=== PATIENT | male | born 1975 | race Caucasian/White ===

== ENCOUNTER → 2017-09-10 | Day surgery (SDC) | payer BC ==
[~2017-09-10] VITALS: Ht 177.8 cm; Wt 90.7 kg
[~2017-09-10] MED LIST: ACETAMINOPHEN IV 100 ML IV ONE; ACETAMINOPHEN IV 1000 MG/100ML (10MG/ML) IV ONE; BUPIVACAINE 0.25% INJ 50ML VIAL ONE; CLINDAMYCIN 900MG IV 50 ML IV ONE; DOXAPRAM HCL 20 MG/ML 20ML VIAL INJ IV ONE; IBUP800T24 PO; KETOROLAC TROMETH 30 MG/ML 1ML VIAL ONE; KETOROLAC TROMETH 60MG/2ML VIAL IM ONE; LIDOCAINE HCL 2 %PF INJ 10ML AMP IJ ONE; MEPERIDINE HCL (50 MG/ML) 1 ML VIAL ONE; METOCLOPRAMIDE HCL 5MG/ml INJ 2ml VIAL IV ONE; MIDAZOLAM HCL 1MG/1ML-2 ML VIAL ONE; MORPHINE SULF(PF) 0.5MG/ML 10ML VIAL ONE; MORPHINE SULFATE 4 MG/ML SYR/VIAL IV PRN; ONDANSETRON HCL 4 MG/2 ML VIAL ONE; ROCURONIUM 10MG/ML 10ML VIAL IV ONE; SUCCINYLCHOLINE CHLORIDE 20 MG/ML 10ML VIAL IV ONE; TRANEXAMIC ACID 1,000 mg/10ml INJ VIAL ONE; VANCOMYCIN HCL 1000 MG VL ONE; fentaNYL CITRATE 100 MCG/2 ML VL ONE
[2017-09-10 10:01] VITALS: BP 141/94
== END | disposition home or self-care (01) ==
LOC: SUR 06:19
PROVIDERS: ATTEND Orthopaedic Surgery Adult Reconstructive Orthopaedic Surgery
DX: S82.832A Other fracture of upper and lower end of left fibula, initial encounter for closed fracture (principal); X58.XXXA Exposure to other specified factors, initial encounter; Y93.9 Activity, unspecified; Y92.9 Unspecified place or not applicable; Y99.9 Unspecified external cause status; Z88.0 Allergy status to penicillin; E66.9 Obesity, unspecified
CPT/HCPCS: 27792; 73610; 76001; C1713; J0131; J0330; J1885; J2175; J2250; J2405; J3010; J3490

== ENCOUNTER 2021-11-23 03:08 | Emergency (ER) | payer BC, MEDICAID ==
[~2021-11-23] VITALS: Ht 177.8 cm; Wt 98.0 kg
[~2021-11-23 03:08] MED LIST changes: -ACETAMINOPHEN IV 100 ML IV ONE; -ACETAMINOPHEN IV 1000 MG/100ML (10MG/ML) IV ONE; -BUPIVACAINE 0.25% INJ 50ML VIAL ONE; -CLINDAMYCIN 900MG IV 50 ML IV ONE; -DOXAPRAM HCL 20 MG/ML 20ML VIAL INJ IV ONE; -IBUP800T24 PO; +IBUP800T27 PO; -KETOROLAC TROMETH 30 MG/ML 1ML VIAL ONE; -KETOROLAC TROMETH 60MG/2ML VIAL IM ONE; -LIDOCAINE HCL 2 %PF INJ 10ML AMP IJ ONE; -MEPERIDINE HCL (50 MG/ML) 1 ML VIAL ONE; -METOCLOPRAMIDE HCL 5MG/ml INJ 2ml VIAL IV ONE; -MIDAZOLAM HCL 1MG/1ML-2 ML VIAL ONE; -MORPHINE SULF(PF) 0.5MG/ML 10ML VIAL ONE; -MORPHINE SULFATE 4 MG/ML SYR/VIAL IV PRN; -ONDANSETRON HCL 4 MG/2 ML VIAL ONE; -ROCURONIUM 10MG/ML 10ML VIAL IV ONE; -SUCCINYLCHOLINE CHLORIDE 20 MG/ML 10ML VIAL IV ONE; -TRANEXAMIC ACID 1,000 mg/10ml INJ VIAL ONE; -VANCOMYCIN HCL 1000 MG VL ONE; -fentaNYL CITRATE 100 MCG/2 ML VL ONE
[2021-11-23 04:41] VITALS: BP 161/99
[2021-11-23] MEDS ORDERED: LORA-655 PO (04:49)
== END 2021-11-23 04:57 | disposition home or self-care (01) ==
LOC: ER 03:08
DX: F41.9 Anxiety disorder, unspecified (principal); Z87.442 Personal history of urinary calculi; Z88.0 Allergy status to penicillin

== ENCOUNTER 2022-03-17 00:14 | Emergency (ER) | payer SELFPAY ==
[~2022-03-17] VITALS: Ht 177.8 cm; Wt 91.0 kg
[~2022-03-17 00:14] MED LIST changes: +LORA-655 PO
[2022-03-17 00:37] VITALS: BP 141/78
== END 2022-03-17 07:37 | disposition left against medical advice (07) ==
LOC: ER 00:14
DX: F41.9 Anxiety disorder, unspecified (principal); Z53.21 Procedure and treatment not carried out due to patient leaving prior to being seen by health care provider; Z76.0 Encounter for issue of repeat prescription

== ENCOUNTER 2022-12-06 04:21 | Emergency (ER) | payer SELFPAY ==
[~2022-12-06] VITALS: Ht 177.8 cm; Wt 93.1 kg
[~2022-12-06 04:21] MED LIST changes: +IBUP-1456 PO; -IBUP800T27 PO; +SERT25TA84 PO
[2022-12-06 04:53] VITALS: BP 139/85
== END 2022-12-06 06:54 | disposition left against medical advice (07) ==
LOC: ER 04:21
DX: F41.9 Anxiety disorder, unspecified (principal); Z53.21 Procedure and treatment not carried out due to patient leaving prior to being seen by health care provider

== ENCOUNTER 2025-03-27 04:30 | Emergency (ER) | payer MEDICAID ==
[~2025-03-27] VITALS: Ht 177.8 cm; Wt 93.5 kg
[2025-03-27] MEDS: ACETAMINOPHEN 325 MG TAB PO ONE (06:23)
[2025-03-27] MEDS: TAMSULOSIN HYDROCHLORIDE 0.4 MG CAP PO ONE (06:23)
[2025-03-27] MEDS: KETOROLAC TROMETH 30 MG/ML 1ML VIAL IV ONE (06:24)
[2025-03-27] MEDS: SODIUM CHLORIDE 0.9% 1,000 ML IV ONE (06:24)
--- NOTE | 2025-03-27 06:28 | ED.PDOC ---
General HPI Comments 49 year old male with PMHx kidney stone presents to the ED with a chief compliant of RT flank pain onset today (03/27/25) around 04:00. Patient states he woke up this morning around 04:00 experiencing RT flank pain. Patient has experienced kidney stones several times in the past, has similar pain. Denies any dysuria, hematuria, nausea, vomiting, diarrhea, chest pain, shortness of breath, dizziness, fever, chills. No other symptoms or modifying factors present at this time. Chief Complaint: Flank Pain Time Seen by MD: 06:15 Primary Care Provider: RUPERTO Reviewed notes: Medications, Allergies Allergies: Coded Allergies: Penicillins (Verified Allergy, Severe, 09/09/17) Home Meds Active Scripts Sertraline Hcl (Zoloft) 25 Mg Tab, 1 TAB PO DAILY, #30 TAB 2 Refills Prov:JIMBO REGAN 09/01/22 Lorazepam (Ativan) 0.5 Mg Tab, 4 TAB PO DAILY, #4 TAB Prov:ROXI SOTO DO 11/23/21 Reported Medications Ibuprofen (Ibuprofen) 800 Mg Tab, 800 MG PO PRN, MG 09/09/17 Information Source: Patient Mode of Arrival: Ambulatory Severity: Moderate Timing: Hours Duration: Since onset Prehospital treatment: None Onset: Spontaneous Symptoms: Other History of: Kidney stone Location: (R) Flank Penile discharge: None Modifying factors: None associated signs and symptoms: Flank Pain Past Medical History PAST MEDICAL HISTORY: Anxiety, Kidney Stones Surgical History: Denies all surgeries Family History Family History: No family hx of DM, Unknown Social History Smoker: Non-Smoker Alcohol: Denies ETOH Use Drugs: Denies Drug Use Lives In: Home Constitutional: denies: chills, diaphoresis, fatigue, fever, malaise, sweats, weakness, others EENTM: denies: blurred vision, double vision, ear bleeding, ear discharge, ear drainage, ear pain, ear ringing, eye pain, eye redness, hearing loss, mouth pain, mouth swelling, nasal discharge, nose bleeding, nose congestion, nose pain, photophobia, tearing, throat pain, throat swelling, voice changes, others Respiratory: denies: cough, hemoptysis, orthopnea, SOB at rest, shortness of breath, SOB with excertion, stridor, wheezing, others Cardiovascular: denies: chest pain, dizzy spells, diaphoresis, Dyspnea on exertion, edema, irregular heart beat, left arm pain, lightheadedness, palpitations, PND, syncope, others Gastrointestinal: denies: abdomen distended, abdominal pain, blood streaked bowels, constipated, diarrhea, dysphagia, difficulty swallowing, hematemesis, melena, nausea, poor appetite, poor fluid intake, rectal bleeding, rectal pain, vomiting, others Genitourinary: reports: flank pain; denies: burning, dysuria, frequency, hematuria, incontinence, penile discharge, penile sore, pain, testicle pain, testicle swelling, urgency, others Neurological: denies: dizziness, fainting, headache, left sided numbness, left sided weakness, numbness, paresthesia, pre-existing deficit, right sided numbness, right sided weakness, seizure, speech problems, tingling, tremors, weakness, others Musculoskeletal: denies: back pain, gout, joint pain, joint swelling, muscle pain, muscle stiffness, neck pain, others Integumetry: denies: bruises, change in color, change in hair/nails, dryness, laceration, lesions, lumps, rash, wounds, others Allergic/Immunocompromised: denies: Difficulty Healing, Frequent Infections, Hives, Itching, others Hematologic/Lymphatic: denies: anemia, blood clots, easy bleeding, easy bruising, swollen glands, others Endocrine: denies: excessive hunger, excessive sweating, excessive thirst, excessive urination, flushing, intolerance to cold, intolerance to heat, unexplained weight gain, unexplained weight loss, others Psychiatric: denies: anxiety, bipolar disorder, depression, hopeless, panic disorder, schizophrenia, sleepless, suicidal, others All Other Systems: Reviewed and Negative Physical Exam General Appearance: Normal HEENT: Normal ENT Inspection, Pharynx Normal, TMs Normal Neck: Full Range of Motion, Non-Tender, Normal, Normal Inspection Respiratory: Chest Non-Tender, Lungs Clear, No Accessory Muscle Use, No Respiratory Distress, Normal Breath Sounds Cardiovascular: No Edema, No JVD, No Murmur, No Gallop, Normal Peripheral Pulses, Regular Rate/Rhythm Breast Exam: Deferred Gastrointestinal: No Organomegaly, Non Tender, No Pulsatile Mass, Normal Bowel Sounds, Soft Genitalia: Deferred Pelvic: Deferred Rectal: Deferred Extremities: No calf tenderness, Normal capillary refill, Normal inspection, Normal range of motion, Non-tender, No pedal edema Musculoskeletal : Apperance: Normal Neurologic: Alert, director process engineering II-XII nml as Tested, No Motor Deficits, Normal Affect, Normal Mood, No Sensory Deficits Cerebellar Function: Normal Reflexes: Normal Skin: Dry, Normal Color, Warm Lymphatic: No Adenopathy Was a procedure done? Was a procedure done?: No Differential Diagnosis Kidney stone (Female): N/A Kidney stone (Male): Pyelonephritis, Urolithiasis, Urinary tract infection X-Ray, Labs, Meds, VS Vital Signs Date Time Temp Pulse Resp B/P (MAP) Pulse Ox O2 Delivery O2 Flow Rate FiO2 03/27/25 06:31 Room Air* 0 21 03/27/25 06:29 98.4 70 18 181/100 (127) 99 98.4 03/27/25 04:32 97.8 82 18 144/102 98 97.8 Lab Test 03/27/25 07:25 03/27/25 06:20 Range/Units Urine Color Light-orange Yellow Urine Clarity Turbid H Clear Urine pH 5.5 5.0-9.0 Urine Specific [place] 1.021 1.001-1.035 Urine Protein 1+ H Negative Urine Ketones Negative Negative Urine Blood 3+ H Negative /uL Urine Nitrite Negative Negative Urine Bilirubin Negative Negative Urine Urobilinogen Normal Negative mg/dL Urine Leukocyte Esterase Negative Negative /uL Urine RBC 92 0 - 3 /hpf Urine Microscopic WBC 4 H 0-3 /HPF Urine Squamous Epithelial Cells None seen <5 /hpf Urine Calcium Oxalate Crystals Few None Seen Urine Bacteria Few H None Seen /hpf Urine Mucus Few None Seen Urine Yeast (Budding) Occasional None Seen /hpf Urine Glucose Trace Normal mg/dL White Blood Count 13.1 H 4.4-10.8 10^3/uL Red Blood Count 5.05 4.5-5.90 10^6/uL Hemoglobin 15.5 13.5-17.5 g/dL Hematocrit 46.1 41.0-53.0 % Mean Corpuscular Volume 91.3 80.0-100.0 fL Mean Corpuscular Hemoglobin 30.7 28.0-32.0 pg Mean Corpuscular Hemoglobin Concent 33.6 32.0-36.0 g/dL Red Cell Distribution Width 13.1 11.8-14.3 % Platelet Count 328 140-450 10^3/uL Mean Platelet Volume 7.1 6.9-10.8 fL Neutrophils (%) (Auto) 79.0 37.0-80.0 % Lymphocytes (%) (Auto) 12.5 10.0-50.0 % Monocytes (%) (Auto) 5.9 0.0-12.0 % Eosinophils (%) (Auto) 2.2 0.0-7.0 % Basophils (%) (Auto) 0.4 0.0-2.0 % Neutrophils # (Auto) 10.4 H 1.6-8.6 10 ^3/uL Lymphocytes # (Auto) 1.6 0.4-5.4 10 ^3/uL Monocytes # (Auto) 0.8 0-1.3 10 ^3/uL Eosinophils # (Auto) 0.3 0-0.8 10 ^3/uL Basophils # (Auto) 0.1 0-0.2 10 ^3/uL Nucleated Red Blood Cells 0.1 % Sodium Level 139 136-145 mmol/L Potassium Level 3.4 L 3.5-5.1 mmol/L Chloride Level 106 98-107 mmol/L Carbon Dioxide Level 22 20-31 mmol/L Anion Gap 11 5-15 Blood Urea Nitrogen 11 9-23 mg/dL Creatinine 0.99 0.700-1.30 mg/dL Glomerular Filtration Rate Calc 92 >90 mL/min BUN/Creatinine Ratio 11.1 10.0-20.0 Serum Glucose 155 H 74-106 mg/dL Calcium Level 9.3 8.7-10.4 mg/dL Current Medications Medications (Trade) Dose Ordered Sig/Brett Route Start Time Stop Time Status Last Admin Sodium Chloride 1,000 ml @ 1,000 mls/hr Q1H ONCE IV 03/27/25 06:30 03/27/25 07:29 DC 03/27/25 06:24 Ketorolac Tromethamine (Toradol Injection) 15 mg ONCE ONCE IV 03/27/25 06:30 03/27/25 06:31 DC 03/27/25 06:24 Acetaminophen (Tylenol Tablet) 650 mg ONCE ONCE PO 03/27/25 06:30 03/27/25 06:31 DC 03/27/25 06:23 Tamsulosin HCl (Flomax) 0.4 mg ONCE ONCE PO 10/21/25 06:30 03/27/25 06:31 DC 03/27/25 06:23 [place] [id number] Ph: [phone] DIAGNOSTIC IMAGING Diagnostic Imaging Report : [id number] Signed PATIENT: JASWINDER GARCIA ACCT: [id number] UNIT: [id number] : 1975 LOC: ER ROOM / BED: / AGE / SEX: 49 / M ADM STATUS: REG ER SERVICE [id number] ORDERING PHYSICIAN: MAE YOUNG MD PROCEDURE(s): ABPL - CT AB PEL WO CON-NO ORAL OR IV REASON: Right Flank pain ORDER NUMBER(s): [id number], ACCESSION NUMBER(s): [id number] Exam: CT CT AB PEL WO CON-NO ORAL OR IV History: Right Flank pain Comparison Study: None Technique: Multidetector spiral CT of the abdomen was performed from lung bases to pubic symphysis. Imaging was performed without IV contrast. Axial, coronal and sagittal multiplanar reformats were obtained from the axial data set by the technologist. Radiation Dose : 1. Abdomen/Pelvis: CTDIvol 11.57 mGy, DLP 681.51 mGy*cm. Findings: Evaluation of solid organs is limited due to lack of intravenous contrast use. Lung Bases: No acute or significant lung base finding. Borderline cardiomegaly. Coronary artery calcifications. No pleural or pericardial effusion. Liver: The liver is normal in size. No focal lesions. Gallbladder and Biliary Tree: Unremarkable Spleen: Unremarkable Pancreas: The pancreas is grossly normal in appearance. Adrenal Glands: Unremarkable Kidneys: Mild right hydroureteronephrosis with obstructing 0.3 cm stone in the proximal right ureter. Nonobstructing stone in the lower pole of the left kidney measures 0.1 cm. Bladder: Grossly unremarkable for degree of distention. Bowel: The stomach is grossly normal in appearance. Mild diffuse colonic bowel wall thickening. Colonic diverticulosis. The small bowel is normal in caliber and distribution. The appendix is not visualized; however, no secondary findings of acute appendicitis identified. Ascites: Absent Lymphadenopathy: No mesenteric, retroperitoneal or periportal lymphadenopathy. Abdominal Wall and Mesentery: Unremarkable. Vasculature: The visualized abdominal aorta is normal in size and caliber. Evaluation of abdominal and pelvic vessels is limited due to lack of intravenous contrast. Vascular calcifications of the aorta. Pelvic Organs: Unremarkable Musculoskeletal: No aggressive focal bony lesions, acute fractures or disloca tion. Degenerative changes of the spine. IMPRESSION: Mild right hydroureteronephrosis with obstructing 0.3 cm stone in the proximal right ureter. Nonobstructing stone in the lower pole of the left kidney measures 0.1 cm. Mild diffuse colonic bowel wall thickening. Correlate for colitis versus underdistention. Radiation optimization: All CT scans at this facility use at least one of these dose optimization techniques: automated exposure control mA and/or kV adjustment per patient size (includes targeted exams where dose is matched to clinical indication) or iterative reconstruction. ATED BY: RANDY STONE MD DICTATED DATE/TIME: 03/27/25626 SIGNED BY: RANDY STONE MD SIGNED DATE/TIME: 03/27/25626 CC: Time of 1ST Reevaluation: 06:45 Reevaluation 1ST: Unchanged Patient Education/Counseling: Diagnosis, Treatment, Prognosis Family Education/Counseling: No Family Present SEPSIS Sepsis Screen Date sepsis recognized/suspect: Mar 27, 2025 Time Sepsis recognized/suspect: 431 Recent Procedure: No On Antibiotic Therapy: No Respiratory Rate >20: No Heart Rate >90: No Temp<36 C (96.8 F) or >38.3 C: No SBP <90 or MAP <65 mmHG: No New Acute Mental Status Change: No Is the patient on CPAP, BIPAP,: No Physician Orders Ct Ab Pel Wo Con-No Oral Or Iv (03/27/25 05:55) Vital Signs Date Time Temp Pulse Resp B/P (MAP) Pulse Ox O2 Delivery O2 Flow Rate FiO2 03/27/25 06:31 Room Air* 0 21 03/27/25 06:29 98.4 70 18 181/100 (127) 99 98.4 03/27/25 04:32 97.8 82 18 144/102 98 97.8 Laboratory Tests Test 03/27/25 06:20 White Blood Count 13.1 10^3/uL (4.4-10.8) H Medications Medications Dose Ordered Sig/Brett Route Start Time Stop Time Status Last Admin Dose Admin Acetaminophen 650 mg ONCE ONCE PO 03/27/25 06:30 03/27/25 06:31 DC 03/27/25 06:23 Ketorolac Tromethamine 15 mg ONCE ONCE IV 03/27/25 06:30 03/27/25 06:31 DC 03/27/25 06:24 Sodium Chloride 1,000 ml @ 1,000 mls/hr Q1H ONCE IV 03/27/25 06:30 03/27/25 07:29 DC 03/27/25 06:24 Tamsulosin HCl 0.4 mg ONCE ONCE PO 03/27/25 06:30 03/27/25 06:31 DC 03/27/25 06:23 Departure 1 Departure Time of Disposition: 08:25 (Patient presented with abdominal pain that was concerning for possible appendicits, gastritis, cholecystitis, colitis, gastroenteritis, or orther possible surgical emergency. Data: 1. I ordered and reviewed the result of at least 3 labs including a CBC, BMP, and Urinalysis. 2. I independently interpreted the following tests: CT Abdoment and Pelvis is concerning for ureteral colic .Risk:This patient has a high risk of morbidity due to further diagnostic testing or treatment and may suffer from an acute abdominal process disorder. Fortunately workup reveals ureteral colic with a stone small enough to pass and patient can be safely discharged to home with outpatient follow up.) Impression: Primary Impression: Ureteral colic Disposition: 01 HOME / SELF CARE / HOMELESS Condition: Stable Referrals: JULIETA TOTO MD Additional Instructions: You have a 3mm kidney stone. You were prescribed flomax. Please take as directed. For pain you can take the followinam: Ibuprofen 400mg with food Noon: Acetaminophen 1000mg 4pm: Ibuprofen 400mg with food 8pm: Acetaminophen 1000mg You were prescribed oxycodone to take as needed for breakthrough pain. Please take as directed. You should follow up with your regular doctor or a urologist within one week to ensure you are doing better. If your symptoms worsen or you have any other concerns then please return to the ER. e-Prescriptions Oxycodone HCl (Oxycodone Hydrochloride) 5 Mg Tab 5 MG PO QID PRN for 4 Days, #16 TAB Prov: MARYAM LANGFORD MD 03/27/25 Tamsulosin Hcl (Flomax) 0.4 Mg Cap 1 CAP PO DAILY for 14 Days, #30 CAP 11 Refills Prov: MARYAM LANGFORD MD 03/27/25 Discharged With: Self Critical Care Note Critical Care Time?: No Stability Stability form required: No Heart Score Heart Score: Heart Score Response (Comments) Value History N/A 0 EKG N/A 0 Age N/A 0 Risk Factors N/A 0 Troponin N/A 0 Total 0 I personally scribed for MARYAM LANGFORD MD ([email or web address]) on 03/27/25 at 06:28. Electronically submitted by Kely Cartwright ([email or web address]). I personally scribed for MARYAM LANGFORD MD ([email or web address]) on 03/27/25 at 06:42. Electronically submitted by Kely Cartwright ([email or web address]). MARYAM LANGFORD MD Mar 27, 2025 06:28
[2025-03-27 06:29] VITALS: BP 181/100; PULSE 70; RESP 18; TEMP 98.4; O2SAT 99
--- NOTE | 2025-03-27 06:29 | DVH ---
Exam: CT CT AB PEL WO CON-NO ORAL OR IV History: Right Flank pain Comparison Study: None Technique: Multidetector spiral CT of the abdomen was performed from lung bases to pubic symphysis. I maging was performed without IV contrast. Axial, coronal and sagittal multiplanar reformats were obta ined from the axial data set by the technologist. Radiation Dose : 1. Abdomen/Pelvis: CTDIvol 11.57 mGy, DLP 681.51 mGy*cm. Findings: Evaluation of solid organs is limited due to lack of intravenous contrast use. Lung Bases: No acute or significant lung base finding. Borderline cardiomegaly. Coronary artery calci fications. No pleural or pericardial effusion. Liver: The liver is normal in size. No focal lesions. Gallbladder and Biliary Tree: Unremarkable Spleen: Unremarkable Pancreas: The pancreas is grossly normal in appearance. Adrenal Glands: Unremarkable Kidneys: Mild right hydroureteronephrosis with obstructing 0.3 cm stone in the proximal right ureter. Nonobstructing stone in the lower pole of the left kidney measures 0.1 cm. Bladder: Grossly unremarkable for degree of distention. Bowel: The stomach is grossly normal in appearance. Mild diffuse colonic bowel wall thickening. Colon ic diverticulosis. The small bowel is normal in caliber and distribution. The appendix is not visuali zed; however, no secondary findings of acute appendicitis identified. Ascites: Absent Lymphadenopathy: No mesenteric, retroperitoneal or periportal lymphadenopathy. Abdominal Wall and Mesentery: Unremarkable. Vasculature: The visualized abdominal aorta is normal in size and caliber. Evaluation of abdominal an d pelvic vessels is limited due to lack of intravenous contrast. Vascular calcifications of the aorta . Pelvic Organs: Unremarkable Musculoskeletal: No aggressive focal bony lesions, acute fractures or dislocation. Degenerative call es of the spine. IMPRESSION: Mild right hydroureteronephrosis with obstructing 0.3 cm stone in the proximal right ureter. Nonobstructing stone in the lower pole of the left kidney measures 0.1 cm. Mild diffuse colonic bowel wall thickening. Correlate for colitis versus underdistention. Radiation optimization: All CT scans at this facility use at least one of these dose optimization brent hniques: automated exposure control mA and/or kV adjustment per patient size (includes targeted exam s where dose is matched to clinical indication) or iterative reconstruction.
[2025-03-27 06:43] LABS: Hematocrit 46.1 % (41.0-53.0); Hemoglobin 15.5 g/dL (13.5-17.5); Mean Corpuscular Hemoglobin 30.7 pg (28.0-32.0); Mean Corpuscular Volume 91.3 fL (80.0-100.0); Nucleated Red Blood Cells % 0.1 %
[2025-03-27 06:52] LABS: Chloride 106 mmol/L (98-107); Sodium 139 mmol/L (136-145)
[2025-03-27 06:53] LABS: Anion Gap 11 (5-15); Carbon Dioxide 22 mmol/L (20-31)
[2025-03-27 06:54] LABS: Calcium 9.3 mg/dL (8.7-10.4); Potassium 3.4 mmol/L (3.5-5.1)
[2025-03-27 06:58] LABS: BUN/Creatinine Ratio 11.1 (10.0-20.0); Blood Urea Nitrogen 11 mg/dL (9-23); Glucose 155 mg/dL (74-106)
[2025-03-27 07:57] LABS: Urine Budding Yeast OCCASIONAL /hpf (None Seen); Urine Protein, UAD 1+ (Negative)
[2025-03-27] MEDS ORDERED: OXYC-900 PO (08:28)
[2025-03-27] MEDS ORDERED: TAMS-35 PO (08:28)
== END 2025-03-27 08:40 | disposition home or self-care (01) ==
LOC: ER 04:30
DX: N13.2 Hydronephrosis with renal and ureteral calculous obstruction (principal); F41.9 Anxiety disorder, unspecified; E86.0 Dehydration; Z88.0 Allergy status to penicillin; Z87.442 Personal history of urinary calculi
CPT/HCPCS: 36415; 74176; 80048; 81001; 85025; 96361; 96374; 99285; J1885; J7030

== ENCOUNTER 2025-03-28 00:13 | Emergency (ER) | payer MEDICAID ==
[~2025-03-28] VITALS: Ht 177.8 cm; Wt 91.6 kg
[~2025-03-28 00:13] MED LIST changes: +OXYC-900 PO; +TAMS-35 PO
--- NOTE | 2025-03-28 03:13 | ED.PDOC ---
History of Present Illness HPI Comments 49-year-old male known he is right presents with right flank pain. 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 Pain is severe, constant. Has been taking some Flomax at home with no relief. Patient has a history of kidney stone in the past with lithotripsy. REVIEW OF SYSTEMS: General: No fever, no chills, or fatigue HEENT: No sore throat, no earache, no congestion, no neck pain. Cardiac: No chest pain. No palpitations. Lungs: No shortness of breath, no cough. GI: No nausea, no vomiting, no diarrhea, no constipation, no abdominal pain : No dysuria, frequency, or urgency. No hematuria. + flank pain Musculoskeletal: No joint pain , no joint swelling, no extremity edema. Skin: No rash, no itching. Neuro: No headache, no dizziness, no weakness PHYSICAL EXAM: General: Awake, alert and oriented. No acute distress. Skin: Skin in warm, dry and intact without rashes or lesions. HEENT: The head is normocephalic and atraumatic. Conjunctivae are clear without exudates or hemorrhage. Sclera is non-icteric. Neck: Normal range of motion. No JVD. Cardiac: Regular rate Respiratory: No signs of respiratory distress. No Stridor. Neurological: The patient is awake, alert and oriented to person, place, and time with normal speech. Speech is clear. There is no facial asymmetry. Normal gait. Psychiatric: Appropriate mood and affect. Good judgement and insight. Chief Complaint: Flank Pain Time Seen by MD: 01:18 Primary Care Provider: RUPERTO Allergies: Coded Allergies: Penicillins (Verified Allergy, Severe, 09/09/17) Home Meds Active Scripts Oxycodone HCl (Oxycodone Hydrochloride) 5 Mg Tab, 5 MG PO QID PRN for 4 Days, #16 TAB Prov:MARYAM LANGFORD MD 03/28/25 Tamsulosin Hcl (Flomax) 0.4 Mg Cap, 1 CAP PO DAILY for 14 Days, #30 CAP 11 Refills Prov:MARYAM LANGFORD MD 03/27/25 Sertraline Hcl (Zoloft) 25 Mg Tab, 1 TAB PO DAILY, #30 TAB 2 Refills Prov:JIMBO REGAN 09/01/22 Lorazepam (Ativan) 0.5 Mg Tab, 4 TAB PO DAILY, #4 TAB Prov:ROXI SOTO DO 11/23/21 Reported Medications Ibuprofen (Ibuprofen) 800 Mg Tab, 800 MG PO PRN, MG 09/09/17 Mode of Arrival: Ambulatory Past Medical History PAST MEDICAL HISTORY: Anxiety, Kidney Stones Surgical History: Denies all surgeries Family History Family History: No family hx of DM, Unknown Social History Smoker: Non-Smoker Alcohol: Denies ETOH Use Drugs: Denies Drug Use Lives In: Home Differential Dx Considerations may include: Differential diagnosis includes but is not limited to pyelonephritis, nephrolithiasis, AAA, musculoskeletal pain, urinary tract infection, cholecystitis, appendicitis, other X-Ray, Labs, Meds, VS Vital Signs Date Time Temp Pulse Resp B/P (MAP) Pulse Ox O2 Delivery O2 Flow Rate FiO2 03/28/25 05:22 78 20 97 Room Air 03/28/25 04:44 98.2 78 14 151/89 (109) 97 98.2 03/28/25 03:49 82 20 173/103 03/28/25 02:39 97.5 82 20 173/103 (126) 97 97.5 03/28/25 00:15 91.6 88 18 169/107 96 91.6 Lab Test 03/28/25 05:37 03/28/25 03:11 Range/Units Urine Color Yellow Yellow Urine Clarity Clear Clear Urine pH 5.0 5.0-9.0 Urine Specific [place] > 1.050 H 1.001-1.035 Urine Protein Negative Negative Urine Ketones Negative Negative Urine Blood Negative Negative /uL Urine Nitrite Negative Negative Urine Bilirubin Negative Negative Urine Urobilinogen Normal Negative mg/dL Urine Leukocyte Esterase Negative Negative /uL Urine RBC None seen 0 - 3 /hpf Urine Microscopic WBC < 1 0-3 /HPF Urine Squamous Epithelial Cells Few <5 /hpf Urine Bacteria None seen None Seen /hpf Urine Mucus Few None Seen Urine Glucose Normal Normal mg/dL White Blood Count 13.0 H 4.4-10.8 10^3/uL Red Blood Count 5.04 4.5-5.90 10^6/uL Hemoglobin 15.4 13.5-17.5 g/dL Hematocrit 46.1 41.0-53.0 % Mean Corpuscular Volume 91.4 80.0-100.0 fL Mean Corpuscular Hemoglobin 30.5 28.0-32.0 pg Mean Corpuscular Hemoglobin Concent 33.4 32.0-36.0 g/dL Red Cell Distribution Width 13.2 11.8-14.3 % Platelet Count 325 140-450 10^3/uL Mean Platelet Volume 6.9 6.9-10.8 fL Neutrophils (%) (Auto) 83.8 H 37.0-80.0 % Lymphocytes (%) (Auto) 6.6 L 10.0-50.0 % Monocytes (%) (Auto) 8.8 0.0-12.0 % Eosinophils (%) (Auto) 0.4 0.0-7.0 % Basophils (%) (Auto) 0.4 0.0-2.0 % Neutrophils # (Auto) 10.9 H 1.6-8.6 10 ^3/uL Lymphocytes # (Auto) 0.9 0.4-5.4 10 ^3/uL Monocytes # (Auto) 1.1 0-1.3 10 ^3/uL Eosinophils # (Auto) 0.1 0-0.8 10 ^3/uL Basophils # (Auto) 0.1 0-0.2 10 ^3/uL Nucleated Red Blood Cells 0.0 % Sodium Level 139 136-145 mmol/L Potassium Level 4.1 3.5-5.1 mmol/L Chloride Level 104 98-107 mmol/L Carbon Dioxide Level 26 20-31 mmol/L Anion Gap 9 5-15 Blood Urea Nitrogen 11 9-23 mg/dL Creatinine 1.39 H 0.700-1.30 mg/dL Glomerular Filtration Rate Calc 61 >90 mL/min BUN/Creatinine Ratio 7.9 L 10.0-20.0 Serum Glucose 143 H 74-106 mg/dL Calcium Level 9.5 8.7-10.4 mg/dL PATIENT: DEMI GARCIACT: [id number]: [id number] : 1975 LOC: ER ROOM / BED: / AGE / SEX: 49 / M ADM STATUS: REG ER SERVICE [id number] ORDERING PHYSICIAN: MAE YOUNG MD PROCEDURE(s): ABPL - CT AB PEL WO CON-NO ORAL OR IV REASON: Right Flank pain ORDER NUMBER(s): [id number], ACCESSION NUMBER(s): [id number] Exam: CT CT AB PEL WO CON-NO ORAL OR IV History: Right Flank pain Comparison Study: None Technique: Multidetector spiral CT of the abdomen was performed from lung bases to pubic symphysis. Imaging was performed without IV contrast. Axial, coronal and sagittal multiplanar reformats were obtained from the axial data set by the technologist. Radiation Dose : 1. Abdomen/Pelvis: CTDIvol 11.57 mGy, DLP 681.51 mGy*cm. Findings: Evaluation of solid organs is limited due to lack of intravenous contrast use. Lung Bases: No acute or significant lung base finding. Borderline cardiomegaly. Coronary artery calcifications. No pleural or pericardial effusion. Liver: The liver is normal in size. No focal lesions. Gallbladder and Biliary Tree: Unremarkable Spleen: Unremarkable Pancreas: The pancreas is grossly normal in appearance. Adrenal Glands: Unremarkable Kidneys: Mild right hydroureteronephrosis with obstructing 0.3 cm stone in the proximal right ureter. Nonobstructing stone in the lower pole of the left kidney measures 0.1 cm. Bladder: Grossly unremarkable for degree of distention. Bowel: The stomach is grossly normal in appearance. Mild diffuse colonic bowel w all thickening. Colonic diverticulosis. The small bowel is normal in caliber and distribution. The appendix is not visualized; however, no secondary findings of acute appendicitis identified. Ascites: Absent Lymphadenopathy: No mesenteric, retroperitoneal or periportal lymphadenopathy. Abdominal Wall and Mesentery: Unremarkable. Vasculature: The visualized abdominal aorta is normal in size and caliber. Evaluation of abdominal and pelvic vessels is limited due to lack of intravenous contrast. Vascular calcifications of the aorta. Pelvic Organs: Unremarkable Musculoskeletal: No aggressive focal bony lesions, acute fractures or dislocation. Degenerative changes of the spine. IMPRESSION: Mild right hydroureteronephrosis with obstructing 0.3 cm stone in the proximal right ureter. Nonobstructing stone in the lower pole of the left kidney measures 0.1 cm. Mild diffuse colonic bowel wall thickening. Correlate for colitis versus underdistention. Radiation optimization: All CT scans at this facility use at least one of these dose optimization techniques: automated exposure control mA and/or kV adjustment per patient size (includes targeted exams where dose is matched to clinical indication) or iterative reconstruction. Time of 1ST Reevaluation: 03:11 Reevaluation 1ST: Unchanged Patient Education/Counseling: Other Family Education/Counseling: No Family Present SEPSIS Sepsis Screen Date sepsis recognized/suspect: Mar 28, 2025 Time Sepsis recognized/suspect: 0015 Recent Procedure: No On Antibiotic Therapy: No Respiratory Rate >20: No Heart Rate >90: No Temp<36 C (96.8 F) or >38.3 C: No SBP <90 or MAP <65 mmHG: No New Acute Mental Status Change: No Is the patient on CPAP, BIPAP,: No Physician Orders Saline Lock (03/28/25 03:06) Vital Signs Date Time Temp Pulse Resp B/P (MAP) Pulse Ox O2 Delivery O2 Flow Rate FiO2 03/28/25 05:22 78 20 97 Room Air 03/28/25 04:44 98.2 78 14 151/89 (109) 97 98.2 03/28/25 03:49 82 20 173/103 03/28/25 02:39 97.5 82 20 173/103 (126) 97 97.5 03/28/25 00:15 91.6 88 18 169/107 96 91.6 Laboratory Tests Test 03/28/25 03:11 White Blood Count 13.0 10^3/uL (4.4-10.8) H Departure 1 Departure Time of Disposition: 04:30 Impression: Primary Impression: Right nephrolithiasis Disposition: 09 ADMITTED INPATIENT Condition: Stable e-Prescriptions Oxycodone HCl (Oxycodone Hydrochloride) 5 Mg Tab 5 MG PO QID PRN for 4 Days, #16 TAB Prov: MARYAM LANGFORD MD 03/28/25 Comments Patient admitted to hospitalist service for further treatment, evaluation and monitoring. Critical Care Note Critical Care Time?: No Stability Stability form required: MAE Gr MD Mar 28, 2025 03:13
[2025-03-28 03:29] LABS: Hematocrit 46.1 % (41.0-53.0); Hemoglobin 15.4 g/dL (13.5-17.5); Mean Corpuscular Hemoglobin 30.5 pg (28.0-32.0); Mean Corpuscular Volume 91.4 fL (80.0-100.0); Nucleated Red Blood Cells % 0.0 %
[2025-03-28 03:45] LABS: Chloride 104 mmol/L (98-107); Potassium 4.1 mmol/L (3.5-5.1); Sodium 139 mmol/L (136-145)
[2025-03-28 03:46] LABS: Anion Gap 9 (5-15); Calcium 9.5 mg/dL (8.7-10.4); Carbon Dioxide 26 mmol/L (20-31)
[2025-03-28] MEDS: HYDROmorphone HCL 2 MG/ML VL/or syr IV ONE (03:49)
[2025-03-28] MEDS: SODIUM CHLORIDE 0.9% 1,000 ML IV ONE (03:49)
[2025-03-28] MEDS: KETOROLAC TROMETH 30 MG/ML 1ML VIAL IV ONE (03:50)
[2025-03-28 03:51] LABS: BUN/Creatinine Ratio 7.9 (10.0-20.0); Blood Urea Nitrogen 11 mg/dL (9-23)
[2025-03-28] MEDS: ONDANSETRON HCL 4 MG/2 ML VIAL IV ONE (03:57)
[2025-03-28 04:01] LABS: Glucose 143 mg/dL (74-106)
[2025-03-28 04:44] VITALS: BP 151/89; TEMP 98.2
[2025-03-28 05:22] VITALS: PULSE 78; RESP 20; O2SAT 97
[2025-03-28 06:40] LABS: Urine Protein, UAD Negative (Negative)
== END 2025-03-28 08:11 | disposition left against medical advice (07) ==
LOC: ER 00:13
DX: N13.2 Hydronephrosis with renal and ureteral calculous obstruction (principal); F41.9 Anxiety disorder, unspecified; Z79.899 Other long term (current) drug therapy; Z87.442 Personal history of urinary calculi; Z88.0 Allergy status to penicillin
CPT/HCPCS: 36415; 80048; 81001; 85025; 96361; 96374; 96375; 99284; J1171; J1885; J2405; J7030

== ENCOUNTER 2025-04-04 21:18 | Inpatient (IN) | payer MEDICAID ==
[~2025-04-04] VITALS: Ht 177.8 cm; Wt 93.7 kg
--- NOTE | 2025-04-04 22:36 | ED.PDOC ---
History of Present Illness HPI Comments 49 year old male presents to the ED with a chief complaint of RT flank pain onset 1 week. Patient states he began experiencing RT flank pain for the past week, was seen in this ED on 03/28/25, was diagnosed with Kidney stones. Patient states he was admitted, was not able to stay due to work. He took Flomax and pain medication, no improvement of symptoms, states pain has worsened. Pain is radiating from RT flank to RT testicle, also began experiencing nausea/vomiting. Denies fever, chills, dysuria, hematuria, dizziness, headache, nausea, vomiting, diarrhea. No other symptoms or modifying factors present at this time. REVIEW OF SYSTEMS: General: No fever, no chills, or fatigue HEENT: No sore throat, no earache, no congestion, no neck pain. Cardiac: No chest pain. No palpitations. Lungs: No shortness of breath, no cough. GI: Nausea, vomiting. no diarrhea, no constipation, no abdominal pain : RT flank pain, RT testicle pain. No dysuria, frequency, or urgency. No hematuria. Musculoskeletal: No joint pain , no joint swelling, no extremity edema. Skin: No rash, no itching. Neuro: No headache, no dizziness, no weakness (And as sated in HPI) PHYSICAL EXAM: General: Awake, alert and oriented. No acute distress. Skin: Skin in warm, dry and intact. Appropriate color for ethnicity. HEENT: The head is normocephalic and atraumatic. Conjunctivae are clear without exudates or hemorrhage. Sclera is non-icteric. Eyelids are normal in appearance without swelling or lesions. Oral mucosa is pink and moist Neck: The neck is supple with normal range of motion. No JVD. Cardiac: Heart rate and rhythm are normal. No murmurs, gallops, or rubs are auscultated. Respiratory: No signs of respiratory distress. Lung sounds are clear in all lobes bilaterally without rales, rhonchi, or wheezes. Abdominal: RT CVA tenderness to palpation. RLQ tenderness to palpation. Extremities: Upper and lower extremities are atraumatic in appearance without deformity or edema. Neurological: The patient is awake, alert and oriented to person, place, and time with normal speech. Speech is clear. There is no facial asymmetry. Psychiatric: Appropriate mood and affect. Good judgement and insight. Chief Complaint: Flank Pain Time Seen by MD: 22:15 Primary Care Provider: RUPERTO Reviewed Notes: Medications, Allergies Allergies: Coded Allergies: Penicillins (Verified Allergy, Severe, 09/09/17) Home Meds Active Scripts Oxycodone HCl (Oxycodone Hydrochloride) 5 Mg Tab, 5 MG PO QID PRN for 4 Days, #16 TAB Prov:MARYAM LANGFORD MD 03/28/25 Tamsulosin Hcl (Flomax) 0.4 Mg Cap, 1 CAP PO DAILY for 14 Days, #30 CAP 11 Refills Prov:MARYAM LANGFORD MD 03/27/25 Sertraline Hcl (Zoloft) 25 Mg Tab, 1 TAB PO DAILY, #30 TAB 2 Refills Prov:JIMBO REGAN 09/01/22 Lorazepam (Ativan) 0.5 Mg Tab, 4 TAB PO DAILY, #4 TAB Prov:ROXI SOTO DO 11/23/21 Reported Medications Ibuprofen (Ibuprofen) 800 Mg Tab, 800 MG PO PRN, MG 09/09/17 Information Source: Patient Mode of Arrival: Ambulatory Severity: Moderate Timing: Weeks Duration: Since onset Prehospital treatment: None Past Medical History PAST MEDICAL HISTORY: Anxiety, Kidney Stones Surgical History: Denies all surgeries Family History Family History: No family hx of DM, Unknown Social History Smoker: Non-Smoker Alcohol: Denies ETOH Use Drugs: Denies Drug Use Lives In: Home Was a procedure done? Was a procedure done?: No Differential Dx Considerations may include: Differential diagnosis includes but is not limited to pyelonephritis, nephrolithiasis, AAA, musculoskeletal pain, urinary tract infection, cholecystitis, appendicitis, other X-Ray, Labs, Meds, VS Vital Signs Date Time Temp Pulse Resp B/P (MAP) Pulse Ox O2 Delivery O2 Flow Rate FiO2 04/04/25 22:56 69 18 154/97 (116) 98 04/04/25 22:56 69 16 98 Room Air* 0 21 04/04/25 22:51 69 15 154/97 04/04/25 21:19 97.8 91 20 180/113 99 97.8 Lab Test 04/04/25 23:06 04/04/25 22:39 Range/Units Urine Color Yellow Yellow Urine Clarity Clear Clear Urine pH 5.5 5.0-9.0 Urine Specific [place] 1.035 1.001-1.035 Urine Protein 1+ H Negative Urine Ketones 1+ H Negative Urine Blood 2+ H Negative /uL Urine Nitrite Negative Negative Urine Bilirubin Negative Negative Urine Urobilinogen Normal Negative mg/dL Urine Leukocyte Esterase Negative Negative /uL Urine RBC 3 0 - 3 /hpf Urine Microscopic WBC 3 0-3 /HPF Urine Squamous Epithelial Cells Few <5 /hpf Urine Calcium Oxalate Crystals Few None Seen Urine Bacteria None seen None Seen /hpf Urine Mucus Few None Seen Urine Glucose Normal Normal mg/dL Urine Opiates Screen Neg NEGATIVE Urine Fentanyl Screen Neg NEGATIVE Urine Barbiturates Screen Neg NEGATIVE Urine Phencyclidine Screen Neg NEGATIVE Urine Amphetamines Screen Neg NEGATIVE Urine Benzodiazepines Screen Neg NEGATIVE Urine Cocaine Screen Neg NEGATIVE Urine Cannabinoids Screen Pos NEGATIVE White Blood Count 12.9 H 4.4-10.8 10^3/uL Red Blood Count 4.94 4.5-5.90 10^6/uL Hemoglobin 15.2 13.5-17.5 g/dL Hematocrit 44.6 41.0-53.0 % Mean Corpuscular Volume 90.2 80.0-100.0 fL Mean Corpuscular Hemoglobin 30.8 28.0-32.0 pg Mean Corpuscular Hemoglobin Concent 34.2 32.0-36.0 g/dL Red Cell Distribution Width 12.9 11.8-14.3 % Platelet Count 368 140-450 10^3/uL Mean Platelet Volume 6.6 L 6.9-10.8 fL Neutrophils (%) (Auto) 75.9 37.0-80.0 % Lymphocytes (%) (Auto) 13.2 10.0-50.0 % Monocytes (%) (Auto) 9.2 0.0-12.0 % Eosinophils (%) (Auto) 1.3 0.0-7.0 % Basophils (%) (Auto) 0.4 0.0-2.0 % Neutrophils # (Auto) 9.8 H 1.6-8.6 10 ^3/uL Lymphocytes # (Auto) 1.7 0.4-5.4 10 ^3/uL Monocytes # (Auto) 1.2 0-1.3 10 ^3/uL Eosinophils # (Auto) 0.2 0-0.8 10 ^3/uL Basophils # (Auto) 0.1 0-0.2 10 ^3/uL Nucleated Red Blood Cells 0.0 % Sodium Level 139 136-145 mmol/L Potassium Level 4.1 3.5-5.1 mmol/L Chloride Level 101 98-107 mmol/L Carbon Dioxide Level 28 20-31 mmol/L Anion Gap 10 5-15 Blood Urea Nitrogen 15 9-23 mg/dL Creatinine 1.38 H 0.700-1.30 mg/dL Glomerular Filtration Rate Calc 62 >90 mL/min BUN/Creatinine Ratio 10.9 10.0-20.0 Serum Glucose 132 H 74-106 mg/dL Calcium Level 10.1 8.7-10.4 mg/dL Total Bilirubin 0.5 0.2-1.0 mg/dL Direct Bilirubin 0.1 <0.3 mg/dL Aspartate Amino Transferase (AST) 21 13-40 U/L Alanine Aminotransferase (ALT) 24 7-40 U/L Alkaline Phosphatase 74 46-116 U/L Total Protein 7.8 5.7-8.2 g/dL Albumin 4.6 3.2-4.8 g/dL Current Medications Medications (Trade) Dose Ordered Sig/Brett Route Start Time Stop Time Status Last Admin Morphine Sulfate 2 mg ONCE ONCE IV 04/04/25 22:30 04/04/25 22:35 DC 04/04/25 22:51 Ketorolac Tromethamine (Toradol Injection) 15 mg ONCE ONCE IV 04/04/25 22:30 04/04/25 22:35 DC 04/04/25 22:49 Ondansetron HCl (Zofran) 4 mg ONCE ONCE IV 04/04/25 22:30 04/04/25 22:36 DC 04/04/25 22:50 Exam: CT CT AB PEL WO CON-NO ORAL OR IV History: Right Flank pain Comparison Study: None Technique: Multidetector spiral CT of the abdomen was performed from lung bases to pubic symphysis. Imaging was performed without IV contrast. Axial, coronal and sagittal multiplanar reformats were obtained from the axial data set by the technologist. Radiation Dose : 1. Abdomen/Pelvis: CTDIvol 11.57 mGy, DLP 681.51 mGy*cm. Findings: Evaluation of solid organs is limited due to lack of intravenous contrast use. Lung Bases: No acute or significant lung base finding. Borderline cardiomegaly. Coronary artery calcifications. No pleural or pericardial effusion. Liver: The liver is normal in size. No focal lesions. Gallbladder and Biliary Tree: Unremarkable Spleen: Unremarkable Pancreas: The pancreas is grossly normal in appearance. Adrenal Glands: Unremarkable Kidneys: Mild right hydroureteronephrosis with obstructing 0.3 cm stone in the proximal right ureter. Nonobstructing stone in the lower pole of the left kidney measures 0.1 cm. Bladder: Grossly unremarkable for degree of distention. Bowel: The stomach is grossly normal in appearance. Mild diffuse colonic bowel wall thickening. Colonic diverticulosis. The small bowel is normal in caliber and distribution. The appendix is not visualized; however, no secondary findings of acute appendicitis identified. Ascites: Absent Lymphadenopathy: No mesenteric, retroperitoneal or periportal lymphadenopathy. Abdominal Wall and Mesentery: Unremarkable. Vasculature: The visualized abdominal aorta is normal in size and caliber. Evaluation of abdominal and pelvic vessels is limited due to lack of intravenous contrast. Vascular calcifications of the aorta. Pelvic Organs: Unremarkable Musculoskeletal: No aggressive focal bony lesions, acute fractures or dislocation. Degenerative changes of the spine. IMPRESSION: Mild right hydroureteronephrosis with obstructing 0.3 cm stone in the proximal right ureter. Nonobstructing stone in the lower pole of the left kidney measures 0.1 cm. Mild diffuse colonic bowel wall thickening. Correlate for colitis versus underdistention. Radiation optimization: All CT scans at this facility use at least one of these dose optimization techniques: automated exposure control mA and/or kV adjustment per patient size (includes targeted exams where dose is matched to clinical indication) or iterative reconstruction. Time of 1ST Reevaluation: 22:45 Reevaluation 1ST: Improved Patient Education/Counseling: Other (Need for admission) Family Education/Counseling: No Family Present SEPSIS Sepsis Screen Date sepsis recognized/suspect: Apr 04, 2025 Time Sepsis recognized/suspect: 2120 Recent Procedure: No On Antibiotic Therapy: No Respiratory Rate >20: No Heart Rate >90: No Temp<36 C (96.8 F) or >38.3 C: No SBP <90 or MAP <65 mmHG: No New Acute Mental Status Change: No Is the patient on CPAP, BIPAP,: No Vital Signs Date Time Temp Pulse Resp B/P (MAP) Pulse Ox O2 Delivery O2 Flow Rate FiO2 04/04/25 22:56 69 18 154/97 (116) 98 04/04/25 22:56 69 16 98 Room Air* 0 21 04/04/25 22:51 69 15 154/97 04/04/25 21:19 97.8 91 20 180/113 99 97.8 Laboratory Tests Test 04/04/25 22:39 White Blood Count 12.9 10^3/uL (4.4-10.8) H Medications Medications Dose Ordered Sig/Brett Route Start Time Stop Time Status Last Admin Dose Admin Ketorolac Tromethamine 15 mg ONCE ONCE IV 04/04/25 22:30 04/04/25 22:35 DC 04/04/25 22:49 Morphine Sulfate 2 mg ONCE ONCE IV 04/04/25 22:30 04/04/25 22:35 DC 04/04/25 22:51 Ondansetron HCl 4 mg ONCE ONCE IV 04/04/25 22:30 04/04/25 22:36 DC 04/04/25 22:50 Departure 1 Departure Time of Disposition: 23:17 Impression: Primary Impression: Right nephrolithiasis Disposition: ADMITTED INPATIENT Condition: Stable Comments MDM: 49-year-old male with severe right flank pain, history of nephrolithiasis. Pain not controlled at home. Patient admitted to hospitalist service for further treatment, evaluation and monitoring. Extensive evaluation was performed in attempt to identify or rule out: (See differential diagnosis section) The following tests were ordered, and results were reviewed by me and discussed with patient: (See diagnostic results section) I reviewed the following notes from the pt's past medical encounters: Encounter 03/28/2025 for kidney stone Decision regarding hospitalization or escalation of hospital level of care: Risk and benefits of admission for further treatment of patient's condition was considered. Due to patient's current clinical condition, high risk of decline and poor outcome if discharged and need for further inpatient management and monitoring, patient will be admitted to the hospital. Drug therapy requiring intensive monitoring for toxicity: N/A Parenteral controlled substances: IV morphine Critical Care Note Critical Care Time?: No Stability Stability form required: No Heart Score Heart Score: Heart Score Response (Comments) Value History N/A 0 EKG N/A 0 Age N/A 0 Risk Factors N/A 0 Troponin N/A 0 Total 0 I personally scribed for MAE YOUNG MD ([email or web address]) on 04/04/25 at 22:43. Electronically submitted by Kely Cartwright ([email or web address]). MAE YOUNG MD Apr 04, 2025 22:36
[2025-04-04] MEDS: KETOROLAC TROMETH 30 MG/ML 1ML VIAL IV ONE (22:49)
[2025-04-04] MEDS: ONDANSETRON HCL 4 MG/2 ML VIAL IV ONE (22:50)
[2025-04-04] MEDS: MORPHINE SULFATE INJ 2 MG/ml SYRG IV ONE (22:51)
[2025-04-04 22:52] LABS: Hematocrit 44.6 % (41.0-53.0); Hemoglobin 15.2 g/dL (13.5-17.5); Mean Corpuscular Hemoglobin 30.8 pg (28.0-32.0); Mean Corpuscular Volume 90.2 fL (80.0-100.0); Nucleated Red Blood Cells % 0.0 %
[2025-04-04 22:55] LABS: Chloride 101 mmol/L (98-107); Potassium 4.1 mmol/L (3.5-5.1); Sodium 139 mmol/L (136-145)
[2025-04-04 22:56] VITALS: PULSE 69; RESP 16; O2SAT 98
[2025-04-04 22:56] LABS: Anion Gap 10 (5-15); Calcium 10.1 mg/dL (8.7-10.4); Carbon Dioxide 28 mmol/L (20-31)
[2025-04-04 23:01] LABS: BUN/Creatinine Ratio 10.9 (10.0-20.0); Blood Urea Nitrogen 15 mg/dL (9-23)
[2025-04-04 23:08] LABS: Glucose 132 mg/dL (74-106)
[2025-04-04 23:18] LABS: Urine Protein, UAD 1+ (Negative)
--- NOTE | 2025-04-04 23:33 | DVHHPRES ---
History of Present Illness Resident Creating Document: GULSHAN HERNANDEZ History of Present Illness Patient is a 49-year-old male with past medical history of recurrent kidney stones, anxiety, presented to [facility] ED with complaint of right flank pain.The pain is described as sharp, 9/10 in intensity, radiating to the right lower abdomen and right testicle approximately 10 days ago. The pain was worsened by ambulation with no relieving factor. Associated symptoms include nausea and vomiting. He presented to the ED on 03/28/25, where he was diagnosed with kidney stone. However, he left AMA due to work. Since then, he has taken Flomax and pain medications without improvement. On evaluation in the ED, patient is afebrile, blood pressure is 180/113 mmHg. Initial labs show WBC 12.9, creatinine 1.38 and serum glucose 132. Abdominal CT shows Mild right hydroureteronephrosis with obstructing 0.3 cm stone in the proximal right ureter. Nonobstructing stone in the lower pole of the left kidney measures 0.1 cm. The patient was started on IV Flomax and IV fluids. Patient is admitted for further evaluation and management. Past Medical History recurrent kidney stones, anxiety Past Surgical History Hernia repair, lipoma removal Family History: None Smoke: No ALCOHOL: none Drugs: None Lives: with Family Review of Systems Review of Systems Eyes: No Pain, No Vision change, No Conjunctivae inflammation, No Eyelid inflammation, No Other, No Redness ENT: No Ear pain, No Ear discharge, No Nose pain, No Nose discharge, No Nose congestion, No Mouth pain, No Mouth swelling, No Throat pain, No Throat swelling, No Other Cardiovascular: No Chest Pain, No Palpitations, No Orthopnea, No Paroxysmal No Dyspnea, No Edema, No Lt Headedness, No Other Respiratory: No Cough, No Dry, No Shortness of breath, No SOB with exertion, No Wheezing, No Hemoptysis, No Pleuritic Pain, No Sputum, No Other Gastrointestinal: Nausea, Vomiting, Right lower Abdominal Pain, No Diarrhea, No Constipation, No Melena, No Hematochezia, No Other Genitourinary: Right flank pain, Right testicle pain. No Dysuria, No Frequency, No Incontinence, No Hematuria, No Retention, No Other Musculoskeletal: No other, No neck pain, No shoulder pain, No arm pain, No back pain, No hand pain, No leg pain, No foot pain Skin: No Rash, No Lesions, No Jaundice, No Bruising, No Other Allergies: Coded Allergies: Penicillins (Verified Allergy, Severe, 09/09/17) Exam Vital Signs Vital Signs Date Time Temp Pulse Resp B/P (MAP) Pulse Ox O2 Delivery O2 Flow Rate FiO2 04/04/25 22:56 69 18 154/97 (116) 98 04/04/25 22:56 Room Air* 0 21 04/04/25 21:19 97.8 97.8 Exam General Appearance: Cooperative. Well developed. Well nourished. NAD Head Exam: Normal inspection Neck Exam: Normal inspection. Non-tender. Normal alignment Pulmonary/Respiratory: Chest non-tender. Clear bilateral breath sounds, no crackles, no wheezing. Cardiovascular/Chest: Regular rate and rhythm. No murmurs. No JVD. Peripheral Pulses: 2+ Radial (R). 2+ Radial (L). 2+ Pedal (R). 2+ Pedal (L) Abdominal Exam: Right CVA tenderness to palpation. RLQ tenderness to palpation. Normal bowel sounds. Soft. normal abdomen, no visible veins, No hepatospenomegaly. No masses Ankle Exam: Negative ankle edema Lower extremities: Negative lower extremity edema Neuro/Mental Status: A&O x4. Coherent. Anxiety. Thoughts/Psych: Normal thought pattern. Appropriate mood and affect. Good judgement and insight Skin Exam: Normal inspection. Normal color. Warm. Dry Labs/Xrays Labs Test 04/04/25 23:06 04/04/25 22:39 Range/Units Urine Color Yellow Yellow Urine Clarity Clear Clear Urine pH 5.5 5.0-9.0 Urine Specific [place] 1.035 1.001-1.035 Urine Protein 1+ H Negative Urine Ketones 1+ H Negative Urine Blood 2+ H Negative /uL Urine Nitrite Negative Negative Urine Bilirubin Negative Negative Urine Urobilinogen Normal Negative mg/dL Urine Leukocyte Esterase Negative Negative /uL Urine RBC 3 0 - 3 /hpf Urine Microscopic WBC 3 0-3 /HPF Urine Squamous Epithelial Cells Few <5 /hpf Urine Calcium Oxalate Crystals Few None Seen Urine Bacteria None seen None Seen /hpf Urine Mucus Few None Seen Urine Glucose Normal Normal mg/dL White Blood Count 12.9 H 4.4-10.8 10^3/uL Red Blood Count 4.94 4.5-5.90 10^6/uL Hemoglobin 15.2 13.5-17.5 g/dL Hematocrit 44.6 41.0-53.0 % Mean Corpuscular Volume 90.2 80.0-100.0 fL Mean Corpuscular Hemoglobin 30.8 28.0-32.0 pg Mean Corpuscular Hemoglobin Concent 34.2 32.0-36.0 g/dL Red Cell Distribution Width 12.9 11.8-14.3 % Platelet Count 368 140-450 10^3/uL Mean Platelet Volume 6.6 L 6.9-10.8 fL Neutrophils (%) (Auto) 75.9 37.0-80.0 % Lymphocytes (%) (Auto) 13.2 10.0-50.0 % Monocytes (%) (Auto) 9.2 0.0-12.0 % Eosinophils (%) (Auto) 1.3 0.0-7.0 % Basophils (%) (Auto) 0.4 0.0-2.0 % Neutrophils # (Auto) 9.8 H 1.6-8.6 10 ^3/uL Lymphocytes # (Auto) 1.7 0.4-5.4 10 ^3/uL Monocytes # (Auto) 1.2 0-1.3 10 ^3/uL Eosinophils # (Auto) 0.2 0-0.8 10 ^3/uL Basophils # (Auto) 0.1 0-0.2 10 ^3/uL Nucleated Red Blood Cells 0.0 % Sodium Level 139 136-145 mmol/L Potassium Level 4.1 3.5-5.1 mmol/L Chloride Level 101 98-107 mmol/L Carbon Dioxide Level 28 20-31 mmol/L Anion Gap 10 5-15 Blood Urea Nitrogen 15 9-23 mg/dL Creatinine 1.38 H 0.700-1.30 mg/dL Glomerular Filtration Rate Calc 62 >90 mL/min BUN/Creatinine Ratio 10.9 10.0-20.0 Serum Glucose 132 H 74-106 mg/dL Calcium Level 10.1 8.7-10.4 mg/dL SEPSIS Sepsis Screen Date sepsis recognized/suspect: Apr 04, 2025 Time Sepsis recognized/suspect: 2120 Recent Procedure: No On Antibiotic Therapy: No Respiratory Rate >20: No Heart Rate >90: No Temp<36 C (96.8 F) or >38.3 C: No SBP <90 or MAP <65 mmHG: No New Acute Mental Status Change: No Is the patient on CPAP, BIPAP,: No Vital Signs Date Time Temp Pulse Resp B/P (MAP) Pulse Ox O2 Delivery O2 Flow Rate FiO2 04/04/25 22:56 69 18 154/97 (116) 98 04/04/25 22:56 69 16 98 Room Air* 0 21 04/04/25 22:51 69 15 154/97 04/04/25 21:19 97.8 91 20 180/113 99 97.8 Laboratory Tests Test 04/04/25 22:39 White Blood Count 12.9 10^3/uL (4.4-10.8) H Medications Medications Dose Ordered Sig/Brett Route Start Time Stop Time Status Last Admin Dose Admin Ketorolac Tromethamine 15 mg ONCE ONCE IV 04/04/25 22:30 04/04/25 22:35 DC 04/04/25 22:49 15 MG Morphine Sulfate 2 mg ONCE ONCE IV 04/04/25 22:30 04/04/25 22:35 DC 04/04/25 22:51 2 MG Ondansetron HCl 4 mg ONCE ONCE IV 04/04/25 22:30 04/04/25 22:36 DC 04/04/25 22:50 4 MG Assessment/Plan Assessment/Plan Bilateral nephrolithiasis Right hydroureteronephrosis secondary to nephrolithiasis History of recurrent nephrolithiasis s/p Lithotripsy Colonic diverticulosis Acute intractable abdominal and flank pain due to above Abdomen/Pelvis CT (04/05/25): Minimal progression of the 3 mm right ureteral stone, remaining in the proximal ureter. Mild worsening of right obstructive uropathy. Punctate left nephrolith. Colonic diverticulosis. Abdomen/Pelvis CT (03/27/25): Mild right hydroureteronephrosis with obstructing 0.3 cm stone in the proximal right ureter. Nonobstructing stone in the lower pole of the left kidney measures 0.1 cm. Mild diffuse colonic bowel wall thickening. Urology consult IV NS 130 MLS/HR Tamsulosin 0.4 mg p.o. Levofloxacin IV once pain management with Tylenol 650 mg p.o. q.6h and Dilaudid 0.5 mg p.o. q.12h Zofran 4 mg IV q.4h PRN Hypertensive urgency monitor BP Anxiety Ativan 0.5 mg p.o. q.12h p.r.n. Sertraline 25 mg p.o. daily CARMEN on CKD likely due to VMN monitor renal function avoid nephrotoxic drugs Diet: Soft Goals of care: Full code, discussed for >30 minutes on 04/04/25 Plan discussed with patient Plan discussed with Dr. Goins Plan discussed with: Patient Date of Service: Apr 04, 2025 Billing Provider: NARESH GOINS MD Common Visit Codes: [id number] INP/OBS CARE (HIGH) Secondary Visit Codes: 83436-[id number] CARE PLAN 30 MINUTES GULSHAN HERNANDEZ RESIDENT Apr 04, 2025 23:32
[2025-04-05] VITALS (9 sets, daily range): BP systolic 142–160; BP diastolic 83–98; PULSE 68–74; RESP 18–20; TEMP 97.5–98.2; O2SAT 96–99
[2025-04-05] MEDS ORDERED: ACETAMINOPHEN 325 MG TAB PO PRN
[2025-04-05] MEDS ORDERED: LORazepam 0.5 MG TAB PO PRN (00:45)
[2025-04-05 02:03] LABS: Alanine Aminotransferase 24.0 U/L (7-40); Albumin 4.6 g/dL (3.2-4.8); Alkaline Phosphatase 74.0 U/L (46-116); Bilirubin, Direct 0.1 mg/dL (<0.3); Bilirubin, Total 0.5 mg/dL (0.2-1.0); Total Protein 7.8 g/dL (5.7-8.2)
[2025-04-05] MEDS: SODIUM CHLORIDE 0.9% 1,000 ML IV ONE ×2 (02:26→11:46)
[2025-04-05] MEDS: SERTRALINE HCL 50 MG TAB PO ONE (02:27)
[2025-04-05] MEDS: TAMSULOSIN HYDROCHLORIDE 0.4 MG CAP PO ONE (02:27)
--- NOTE | 2025-04-05 02:46 | DVH ---
Exam: CT CT AB PEL WO CON-NO ORAL OR IV History: nephrolithiasis Comparison Study: CT CT AB PEL WO CON-NO ORAL OR IV on DOS: 03/27/25 Technique: Multidetector spiral CT of the abdomen was performed from lung bases to pubic symphysis. I maging was performed without IV contrast. Axial, coronal and sagittal multiplanar reformats were obta ined from the axial data set by the technologist. Radiation Dose : 1. Abdomen/Pelvis: CTDIvol 9.69 mGy, DLP 513.92 mGy*cm. Findings: Evaluation of solid organs is limited due to lack of intravenous contrast use. Lower Chest: No acute findings. Liver: Unremarkable. Gallbladder and Biliary Tree: Unremarkable Pancreas: Mild atrophy. Spleen: Unremarkable. Adrenal Glands: Unremarkable. Kidneys/Ureters: Minimal progression of the 3 mm stone now present in the right proximal ureter at th e level of L4-L5, with mildly worsened hydroureteronephrosis. Unchanged punctate left nephrolith. Un remarkable left ureter. Bladder: Grossly unremarkable for degree of distention. Pelvic Organs: Unremarkable as visualized. Bowel: Normal caliber without wall thickening. Normal appendix. Colonic diverticulosis. Vasculature: Mild atherosclerosis. Lymphadenopathy: No obvious adenopathy. Peritoneum: No ascites, free air, or fluid collection. Abdominal Wall: No significant hernia. Musculoskeletal: No acute findings. IMPRESSION: 1. Minimal progression of the 3 mm right ureteral stone, remaining in the proximal ureter. Mild worse estephania of right obstructive uropathy. 2. Punctate left nephrolith. 3. Colonic diverticulosis. Radiation optimization: All CT scans at this facility use at least one of these dose optimization brent hniques: automated exposure control mA and/or kV adjustment per patient size (includes targeted exam s where dose is matched to clinical indication) or iterative reconstruction.
[2025-04-05 03:16] LABS: Barbiturate Scree,Urine Neg (NEGATIVE); Benzodiazephine Screen, Urine Neg (NEGATIVE); Cannabinoid Screen, Urine Pos (NEGATIVE); Opiate Scree,Urine Neg (NEGATIVE)
[2025-04-05 03:51] LABS: Amphetamine Screen, Urine Neg (NEGATIVE); Cocaine Screen, Urine Neg (NEGATIVE); Phencyclidine Screen, Urine Neg (NEGATIVE)
[2025-04-05] MEDS: SODIUM CHLOR 0.9% PF (SALINE LOCK) 10ML VIAL/SYR IV SCH (05:13)
[2025-04-05 06:48] LABS: Hematocrit 41.2 % (41.0-53.0); Hemoglobin 13.9 g/dL (13.5-17.5); Mean Corpuscular Hemoglobin 30.5 pg (28.0-32.0); Mean Corpuscular Volume 90.3 fL (80.0-100.0); Nucleated Red Blood Cells % 0.1 %
[2025-04-05 07:02] LABS: Alanine Aminotransferase 16 U/L (7-40); Albumin 4.0 g/dL (3.2-4.8); Alkaline Phosphatase 64 U/L (46-116); Anion Gap 9 (5-15); BUN/Creatinine Ratio 11.5 (10.0-20.0); Blood Urea Nitrogen 14 mg/dL (9-23); Calcium 8.9 mg/dL (8.7-10.4); Carbon Dioxide 27 mmol/L (20-31); Chloride 103 mmol/L (98-107); Glucose 104 mg/dL (74-106); Potassium 3.5 mmol/L (3.5-5.1); Sodium 139 mmol/L (136-145); Total Protein 7.0 g/dL (5.7-8.2)
[2025-04-05 07:03] LABS: Bilirubin, Total 0.6 mg/dL (0.2-1.0)
[2025-04-05] MEDS: SERTRALINE HCL 50 MG TAB PO SCH (09:07)
[2025-04-05] MEDS: HYDROcodone-ACET 5/325MG TAB PO PRN (10:45)
--- NOTE | 2025-04-05 11:18 | DVH ---
INDICATION: rule out obstruction TECHNIQUE: Multiple real-time sonographic images of the kidneys and bladder were obtained. COMPARISON: None FINDINGS: The right kidney measures 13 cm in length, which is normal in size. There is normal echogen icity of the right kidney. Mild right hydronephrosis. The left kidney measures 12 cm in length, which is normal in size. There is normal echogenicity of th e left kidney. No hydronephrosis. Nonobstructing 4 mm left upper pole renal calculus. No large intraluminal masses are seen in the bladder. IMPRESSION: Mild right hydronephrosis.
[2025-04-05 12:33] LABS: Calcium 9.0 mg/dL (8.7-10.4)
[2025-04-05 12:37] LABS: Uric Acid 5.0 mg/dL (3.7-9.2)
[2025-04-05] MEDS: HYDROmorphone HCL 2 MG/ML VL/or syr IV PRN (13:09)
[2025-04-05] MEDS: ONDANSETRON HCL 4 MG/2 ML VIAL IV PRN (13:09)
[2025-04-05 16:38] LABS: Protein, Urine 18.6 mg/dL (1-14)
[2025-04-05 16:54] LABS: Urine Protein, UAD Negative (Negative)
[2025-04-05] MEDS: TAMSULOSIN HYDROCHLORIDE 0.4 MG CAP PO SCH (17:54)
[2025-04-05 19:02] LABS: COVID19 ANTIGEN SOFIA FIA NEGATIVE (NEGATIVE)
[2025-04-05] MEDS: LORATADINE 10 MG TAB PO SCH (21:12)
[2025-04-06 00:53] VITALS: BP 138/84; PULSE 71; RESP 14; TEMP 98.4; O2SAT 97
[2025-04-06 05:00] VITALS: BP 159/97; PULSE 71; RESP 16; TEMP 98; O2SAT 98
[2025-04-06 09:00] VITALS: BP 164/109; PULSE 77; RESP 19; TEMP 98.3; O2SAT 98
[2025-04-06 11:02] LABS: Hematocrit 44.0 % (41.0-53.0); Hemoglobin 15.0 g/dL (13.5-17.5); Mean Corpuscular Hemoglobin 30.7 pg (28.0-32.0); Mean Corpuscular Volume 90.5 fL (80.0-100.0); Nucleated Red Blood Cells % 0.0 %
--- NOTE | 2025-04-06 11:05 | DVHPNRES ---
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 Patient states he visited the ED 1 week back with the same complaints. CT scan showed a 3 mm right renal stone and he was sent home on Flomax. After going home, he had the same symptoms on and off. The patient states he came back to the ED yesterday because of increased pain and vomiting. Patient reports he has been having Previous hospitalization: Lithotripsy in 2019 PMHx:anxiety, recurrent kidney stones PSHx: ORIF of tibia, Lipoma removal, hernia repair Family history: History of breast cancer in grandmother and sister Social history: Denies smoking, admits to alcohol use occasionally, admits to marijuana use Allergic history: Penicillin General: patient denies fever, fatigue, weaknes, sweating, any recent changes in appetite and weight HEENT: No headaches, visiual changes, hearing loss, tinnitus, nasal congestion and discharge, and sore throat. Cardiovascular: Denies chest pain, palpitations, dyspnea on exertion, orthopnea, or claudication. Respiratory: No cough, and wheezing. Gastrointestinal: Complains of vomiting, right flank pain Genitourinary: No dysuria, hematuria, discharge, frequency, urgency, nocturia, incontinence, and urinary retention. Endocrine: No heat or cold intolerance, polydipsia, polyuria, and polyphagia. Neurological: No dizziness, extremity weakness and numbness, tremors, gait disturbance, seizures, and memory impairment. Psychiatric: Denies depression, anxiety,or insomnia. Musculoskeletal: Denies neck pain, stiffness and swelling, back pain, muscle weakness, joint pain, stiffness, swelling, or limited range of motion. Skin: No rashes, itching, skin lesion, changes in hair, nail, skin texture and breast. Hematologic/Lymphatic: Denies easy bruising, bleeding tendencies, or lymph node enlargement. Objective vital signs Vital Sign Date Time Temp Pulse Resp B/P (MAP) Pulse Ox O2 Delivery O2 Flow Rate FiO2 04/05/25 08:20 97.6 74 19 157/98 (117) 99 97.6 04/05/25 02:25 Room Air* 0 21 Total Intake and Output 04/04/25 04/04/25 04/05/25 15:00 23:00 07:00 Intake Total 200 ml Balance 200 ml medications Current Medications Medications Dose Ordered Sig/Brett Route Start Time Stop Time Status Last Admin Dose Admin Sodium Chloride 10 ml Q8HR IV 04/05/25 06:00 04/05/25 05:13 10 ML Ondansetron HCl 4 mg Q4HP PRN IV 04/05/25 00:00 Acetaminophen 650 mg Q6HP PRN PO 04/05/25 00:00 Hydromorphone HCl 0.5 mg Q4HPRN PRN IV 04/05/25 00:15 Acetaminophen/ Hydrocodone Bitart 1 tab Q4HPRN PRN PO 04/05/25 00:15 Tamsulosin HCl 0.4 mg QPM PO 04/05/25 18:00 Levofloxacin/ Dextrose 100 ml @ 100 mls/hr DAILY IV 04/05/25 10:00 UNV Lorazepam 0.5 mg Q12HP PRN PO 04/05/25 00:45 Sertraline HCl 25 mg DAILY PO 04/05/25 10:00 Examination General Appearance: Alert, Oriented X3, Cooperative, No acute distress HEENT: Atraumatic, PERRLA, EOMI, Mucous membrane moist/pink Respiratory: Clear to auscultation, Normal air movement Cardiovascular: Regular rate, Normal S1, Normal S2, No murmurs, no chest wall tenderness Abdominal: Normal bowel sounds, Soft, No tenderness, No hepatospenomegaly, No masses Extremities: No clubbing, No cyanosis, No edema, Normal pulses, No tenderness/swelling Skin: No rashes, No breakdown, No significant lesion Neuro: Normal gait, Normal speech, Strength at 5/5 X4 ext, Normal tone, Sensation intact, Cranial nerves 3-12 NL, Reflexes 2+ Psych/Mental Status: Mental status NL, Mood NL laboratory and microbiology Laboratory Tests 04/05/25 05:36 Test 04/05/25 05:36 Range/Units Serum Glucose 104 74-106 mg/dL Problem List/Assessment/Plan Problem List/Assessment/Plan Assessment and plan Bilateral nephrolithiasis Right hydroureteronephrosis secondary to nephrolithiasis History of recurrent nephrolithiasis s/p Lithotripsy Colonic diverticulosis Acute intractable abdominal and flank pain due to above Abdomen/Pelvis CT (04/05/25): Minimal progression of the 3 mm right ureteral stone, remaining in the proximal ureter. Mild worsening of right obstructive uropathy. Punctate left nephrolith. Colonic diverticulosis. Abdomen/Pelvis CT (03/27/25): Mild right hydroureteronephrosis with obstructing 0.3 cm stone in the proximal right ureter. Nonobstructing stone in the lower pole of the left kidney measures 0.1 cm. Mild diffuse colonic bowel wall thickening. Urology consult IV NS 130 MLS/HR Tamsulosin 0.4 mg p.o. Levofloxacin IV once pain management with Tylenol 650 mg p.o. q.6h and Dilaudid 0.5 mg p.o. q.12h Zofran 4 mg IV q.4h PRN Hypertensive urgency monitor BP Anxiety Ativan 0.5 mg p.o. q.12h p.r.n. Sertraline 25 mg p.o. 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 Porter Plan discussed with: Patient Date of Service: Apr 05, 2025 Billing Provider: EARL PORTER MD Common Visit Codes: [id number] INP/OBS CARE(HIGH) CLOTILDE GRIMALDO RESIDENT Apr 05, 2025 09:49 EARL PORTER MD Apr 09, 2025 20:47
[2025-04-06 11:13] LABS: Chloride 103 mmol/L (98-107); Potassium 3.6 mmol/L (3.5-5.1); Sodium 140 mmol/L (136-145)
--- NOTE | 2025-04-06 11:13 | DVH ---
Date: 04/06/2025 10:37 AM Examination: XY KUB ABDOMEN SINGLE VIEW History: check for ureteral obstruction. upright. Comparison: US KIDNEY on DOS: 04/05/25, CT CT AB PEL WO CON-NO ORAL OR IV on DOS: 04/05/25, CT CT AB PEL WO CON-NO ORAL OR IV on DOS: 03/27/25 TECHNIQUE: Frontal views of the abdomen was obtained. FINDINGS: Bowel gas pattern is unremarkable. The lung bases are unremarkable. No acute osseous abnormality identified. IMPRESSION: Nonobstructive bowel gas pattern. No definite calculi are noted.
[2025-04-06 11:14] LABS: Anion Gap 8 (5-15); Calcium 9.4 mg/dL (8.7-10.4); Carbon Dioxide 29 mmol/L (20-31)
[2025-04-06 11:19] LABS: BUN/Creatinine Ratio 12.4 (10.0-20.0); Blood Urea Nitrogen 13 mg/dL (9-23)
[2025-04-06 11:20] LABS: Glucose 121 mg/dL (74-106)
[2025-04-06] MEDS ORDERED: HYDR25TA5 PO (12:54)
[2025-04-06 13:00] VITALS: BP 140/88; PULSE 77; RESP 17; TEMP 98.6; O2SAT 98
[2025-04-06] MEDS ORDERED: LORA-483 PO (13:06)
[2025-04-06] MEDS ORDERED: LORA-622 PO (13:06)
[2025-04-06] MEDS: hydroCHLOROthiazide 25 MG TAB PO ONE (13:15)
--- NOTE | 2025-04-06 16:45 | DVHDSRES ---
Discharge Summary Date of Admission Resident Creating Document: CLOTILDE GRIMALDO RESIDENT Apr 04, 2025 at 23:51 Date of Discharge: Apr 06, 2025 Labs/Diagnostic Data: Laboratory Results Test 04/06/25 10:28 04/05/25 17:50 04/05/25 16:03 04/05/25 13:00 White Blood Count 5.7 10^3/uL (4.4-10.8) Red Blood Count 4.86 10^6/uL (4.5-5.90) Hemoglobin 15.0 g/dL (13.5-17.5) Hematocrit 44.0 % (41.0-53.0) Mean Corpuscular Volume 90.5 fL (80.0-100.0) Mean Corpuscular Hemoglobin 30.7 pg (28.0-32.0) Mean Corpuscular Hemoglobin Concent 34.0 g/dL (32.0-36.0) Red Cell Distribution Width 12.9 % (11.8-14.3) Platelet Count 383 10^3/uL (140-450) Mean Platelet Volume 6.9 fL (6.9-10.8) Neutrophils (%) (Auto) 63.1 % (37.0-80.0) Lymphocytes (%) (Auto) 25.5 % (10.0-50.0) Monocytes (%) (Auto) 7.3 % (0.0-12.0) Eosinophils (%) (Auto) 3.4 % (0.0-7.0) Basophils (%) (Auto) 0.7 % (0.0-2.0) Neutrophils # (Auto) 3.6 10 ^3/uL (1.6-8.6) Lymphocytes # (Auto) 1.5 10 ^3/uL (0.4-5.4) Monocytes # (Auto) 0.4 10 ^3/uL (0-1.3) Eosinophils # (Auto) 0.2 10 ^3/uL (0-0.8) Basophils # (Auto) 0 10 ^3/uL (0-0.2) Nucleated Red Blood Cells 0.0 % Sodium Level 140 mmol/L (136-145) Potassium Level 3.6 mmol/L (3.5-5.1) Chloride Level 103 mmol/L (98-107) Carbon Dioxide Level 29 mmol/L (20-31) Anion Gap 8 (5-15) Blood Urea Nitrogen 13 mg/dL (9-23) Creatinine 1.05 mg/dL (0.700-1.30) Glomerular Filtration Rate Calc 86 mL/min (>90) BUN/Creatinine Ratio 12.4 (10.0-20.0) Serum Glucose 121 mg/dL (74-106) Calcium Level 9.4 mg/dL (8.7-10.4) Influenza Type A Antigen Negative (Negative) Influenza Type B Antigen Negative (Negative) SARS-CoV-2 Antigen (Rapid) Negative (NEGATIVE) Vitamin D 25-Hydroxy 24.6 ng/mL (30.0-100) Urine Color Light-yellow (Yellow) Urine Clarity Clear (Clear) Urine pH 5.5 (5.0-9.0) Urine Specific [place] 1.021 (1.001-1.035) Urine Protein Negative (Negative) Urine Ketones Negative (Negative) Urine Blood 1+ /uL (Negative) Urine Nitrite Negative (Negative) Urine Bilirubin Negative (Negative) Urine Urobilinogen Normal mg/dL (Negative) Urine Leukocyte Esterase Negative /uL (Negative) Urine RBC None seen /hpf (0 - 3) Urine Microscopic WBC /HPF (0-3) Urine Squamous Epithelial Cells None seen /hpf (<5) Urine Bacteria None seen /hpf (None Seen) Urine Mucus Few (None Seen) Urine Osmolality 639 mOsm/kg Urine Creatinine 209.58 mg/dL (30.0-125.0) Urine Sodium 57 mmol/L (40-220) Urine Potassium 41 mmol/L (12-62) Urine Glucose Normal mg/dL (Normal) Urine Total Protein 18.6 mg/dL (1-14) Test 04/05/25 05:36 04/04/25 23:06 04/04/25 22:39 Uric Acid 5.0 mg/dL (3.7-9.2) Total Bilirubin 0.6 mg/dL (0.2-1.0) Aspartate Amino Transferase (AST) 17 U/L (13-40) Alanine Aminotransferase (ALT) 16 U/L (7-40) Alkaline Phosphatase 64 U/L (46-116) Total Protein 7.0 g/dL (5.7-8.2) Albumin 4.0 g/dL (3.2-4.8) Urine Calcium Oxalate Crystals Few (None Seen) Urine Opiates Screen Neg (NEGATIVE) Urine Fentanyl Screen Neg (NEGATIVE) Urine Barbiturates Screen Neg (NEGATIVE) Urine Phencyclidine Screen Neg (NEGATIVE) Urine Amphetamines Screen Neg (NEGATIVE) Urine Benzodiazepines Screen Neg (NEGATIVE) Urine Cocaine Screen Neg (NEGATIVE) Urine Cannabinoids Screen Pos (NEGATIVE) Direct Bilirubin 0.1 mg/dL (<0.3) Other Laboratory Tests 04/06/25 10:28 Brief Hx & Hospital Course: The patient is a 49-year-old male with past medical history of anxiety, recurrent kidney stones, 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 Patient stated he visited the ED 1 week back with the same complaints. CT scan showed a 3 mm right renal stone and he was sent home on Flomax. After going home, he had the same symptoms on and off. The patient stated he came back to the ED yesterday because of increased pain and vomiting. Patient reported he has been having recurrent kidney stones for the past 15 years. Patient underwent lithotripsy 5 years back. Renal ultrasound showed mild right hydronephrosis. abdomen x-ray showed no abnormalities. CT abdomen showed minimal progression of the 3 mm right ureteral stone and mild worsening of right obstructive uropathy Punctate left nephrolith and colonic diverticulosis. Patient was treated with IV fluid, pain killers. During the course of the hospitalization patient improved clinically and is being discharged. 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 Activity: No Restrictions, As Tolerated Follow Up/Referral: F/u with PCP in 7 days Medications: Flomax 0.4mg Scheduled Hctz (Hydrochlorothiazide), 12.5 MG PO DAILY Ibuprofen (Ibuprofen), 800 MG PO PRN, (Reported) Loratadine (Claritin), 1 TAB PO DAILY Sertraline Hcl (Zoloft), 1 TAB PO DAILY Tamsulosin Hcl (Flomax), 1 CAP PO DAILY Scheduled PRN Oxycodone HCl (Oxycodone Hydrochloride), 5 MG PO QID PRN Discontinued Medications Lorazepam (Ativan), 4 TAB PO DAILY Discharge Statement: "Patient was advised to return to the ER or call 911 if any headaches, dizziness, shortness of breath, chest pain, abdominal pain, bleeding, fevers, or worsening of medical condition. Patient was counseled about treatment plan, medications, possible side effects, patientverbalized understanding. All questions were answered to the best of my ability. This discharge took greater then 30 minutes in planning, reviewing documentation, counseling the patient, and discussing with other team members." ASSESSMENT ASSESSMENT Assessment NEPHROLITHIASIS Date of Service: Apr 06, 2025 Billing Provider: EARL SEO MD Common Visit Codes: 85630-ENT/OBS DISCH DAY >30min CLOTILDE GRIMALDO RESIDENT Apr 06, 2025 16:45 EARL SEO MD Apr 09, 2025 20:47
[2025-04-07] MEDS ORDERED: hydroCHLOROthiazide 25 MG TAB PO SCH (10:00)
== END 2025-04-06 14:45 | disposition home or self-care (01) | DRG 465 ==
LOC: ER 21:18 → OVERFLOW 23:51 → WEST WING 04-05 02:08
PROVIDERS: ADMIT Internal Medicine Geriatric Medicine; ATTEND Internal Medicine Geriatric Medicine
DX: N13.2 Hydronephrosis with renal and ureteral calculous obstruction (principal); N17.0 Acute kidney failure with tubular necrosis; F41.9 Anxiety disorder, unspecified; I16.0 Hypertensive urgency; K57.30 Diverticulosis of large intestine without perforation or abscess without bleeding; N18.9 Chronic kidney disease, unspecified; Z79.899 Other long term (current) drug therapy
CPT/HCPCS: 36415; 74018; 74176; 76775; 80048; 80053; 80076; 80307; 81001; 81015; 82306; 82310; 82570; 83935; 84133; 84156; 84300; 84550; 85025; 87086; 87426; 87804; 96374; G0378; J1885; J1956; J2405

== ENCOUNTER 2025-04-24 11:52 | Emergency (ER) | payer MEDICAID ==
[~2025-04-24] VITALS: Ht 177.8 cm; Wt 90.7 kg
[~2025-04-24 11:52] MED LIST changes: +HYDR25TA5 PO; +LORA-622 PO; -LORA-655 PO
[2025-04-24 11:54] VITALS: BP 134/87; PULSE 98; RESP 20; TEMP 97.3; O2SAT 97
[2025-04-24] MEDS ORDERED: KETOROLAC TROMETH 60MG/2ML VIAL IM ONE (12:15)
[2025-04-24] MEDS ORDERED: ACETAMINOPHEN 500 MG TAB or CAP PO ONE (12:15)
--- NOTE | 2025-04-24 12:19 | ED.PDOC ---
General HPI Comments 49 y/o M, with PMHx of kidney stones presents to the ED for CC of dysuria. Patient states, he has been experiencing symptoms of dysuria with associated hematuria and penile discomfort x2days. Patient reports, to have experienced similar symptoms in the past with feelings of having something lodged in the urethra of his penis, however has not seen anything there. Patient comments, to have pain to the right side of his abdomen that worsens when sitting. Patient denies fever, chills, nausea, or vomiting. No other symptoms or modifying factors are present at this time. Chief Complaint: Urinary Time Seen by MD: 12:15 Primary Care Provider: RUPERTO Cueva notes: Nurses Notes, Medications, Allergies Allergies: Coded Allergies: Penicillins (Verified Allergy, Severe, 09/09/17) Home Meds Active Scripts Loratadine (Claritin) 10 Mg Tab, 1 TAB PO DAILY for 10 Days, #10 TAB 5 Refills Prov:CANDE BRENNER RESIDENT 04/06/25 Hctz (Hydrochlorothiazide) 25 Mg Tab, 12.5 MG PO DAILY for 30 Days, #15 TAB Prov:CANDE BRENNER RESIDENT 04/06/25 Oxycodone HCl (Oxycodone Hydrochloride) 5 Mg Tab, 5 MG PO QID PRN for 4 Days, #16 TAB Prov:MARYAM LANGFORD MD 03/28/25 Tamsulosin Hcl (Flomax) 0.4 Mg Cap, 1 CAP PO DAILY for 14 Days, #30 CAP 11 Refills Prov:MARYAM LANGFORD MD 03/27/25 Sertraline Hcl (Zoloft) 25 Mg Tab, 1 TAB PO DAILY, #30 TAB 2 Refills Prov:JIMBO RAMOS 09/01/22 Reported Medications Ibuprofen (Ibuprofen) 800 Mg Tab, 800 MG PO PRN, MG 09/09/17 Information Source: Patient Mode of Arrival: Ambulatory Severity: Moderate Inability to void: None Timing: Days Duration: Since onset Prehospital treatment: None Symptoms: Dysuria, Hematuria History of: None Penile discharge: None associated signs and symptoms: Dysuria, Hematuria Past Medical History PAST MEDICAL HISTORY: Anxiety, Kidney Stones Surgical History: Denies all surgeries Family History Family History: No family hx of DM, Unknown Social History Smoker: Non-Smoker Alcohol: Denies ETOH Use Drugs: Denies Drug Use Lives In: Home Constitutional: denies: chills, diaphoresis, fatigue, fever, malaise, sweats, weakness, others EENTM: denies: blurred vision, double vision, ear bleeding, ear discharge, ear drainage, ear pain, ear ringing, eye pain, eye redness, hearing loss, mouth pain, mouth swelling, nasal discharge, nose bleeding, nose congestion, nose pain, photophobia, tearing, throat pain, throat swelling, voice changes, others Respiratory: denies: cough, hemoptysis, orthopnea, SOB at rest, shortness of breath, SOB with excertion, stridor, wheezing, others Cardiovascular: denies: chest pain, dizzy spells, diaphoresis, Dyspnea on exertion, edema, irregular heart beat, left arm pain, lightheadedness, palpitations, PND, syncope, others Gastrointestinal: reports: abdominal pain; denies: abdomen distended, blood streaked bowels, constipated, diarrhea, dysphagia, difficulty swallowing, hematemesis, melena, nausea, poor appetite, poor fluid intake, rectal bleeding, rectal pain, vomiting, others Genitourinary: reports: dysuria, hematuria, others (penile pain); denies: burning, flank pain, frequency, incontinence, penile discharge, penile sore, pain, testicle pain, testicle swelling, urgency Neurological: denies: dizziness, fainting, headache, left sided numbness, left sided weakness, numbness, paresthesia, pre-existing deficit, right sided numbness, right sided weakness, seizure, speech problems, tingling, tremors, weakness, others Musculoskeletal: reports: back pain; denies: gout, joint pain, joint swelling, muscle pain, muscle stiffness, neck pain, others Integumetry: denies: bruises, change in color, change in hair/nails, dryness, laceration, lesions, lumps, rash, wounds, others Allergic/Immunocompromised: denies: Difficulty Healing, Frequent Infections, Hives, Itching, others Hematologic/Lymphatic: denies: anemia, blood clots, easy bleeding, easy bruising, swollen glands, others Endocrine: denies: excessive hunger, excessive sweating, excessive thirst, excessive urination, flushing, intolerance to cold, intolerance to heat, unexplained weight gain, unexplained weight loss, others Psychiatric: denies: anxiety, bipolar disorder, depression, hopeless, panic disorder, schizophrenia, sleepless, suicidal, others All Other Systems: Reviewed and Negative Physical Exam General Appearance: No Apparent Distress, Normal HEENT: Normal ENT Inspection, Pharynx Normal Neck: Full Range of Motion, Non-Tender, Normal, Normal Inspection Respiratory: Chest Non-Tender, Lungs Clear, No Accessory Muscle Use, No Re spiratory Distress, Normal Breath Sounds Cardiovascular: No Edema, No Murmur, No Gallop, Normal Peripheral Pulses, Regular Rate/Rhythm Breast Exam: Deferred Gastrointestinal: No Organomegaly, No Pulsatile Mass, Normal Bowel Sounds, Soft, Other (mild right mid abdominal ttp) Genitalia: Deferred Pelvic: Deferred Rectal: Deferred Extremities: No calf tenderness, Normal capillary refill, Normal inspection, Normal range of motion, Non-tender, No pedal edema Musculoskeletal : Apperance: Normal Neurologic: Alert, public service administrator II-XII nml as Tested, No Motor Deficits, Normal Affect, Normal Mood, No Sensory Deficits Cerebellar Function: Normal Reflexes: Normal Skin: Dry, Normal Color, Warm Lymphatic: No Adenopathy Was a procedure done? Was a procedure done?: No Differential Diagnosis Kidney stone (Female): Musculoskeletal pain, N/A Kidney stone (Male): Urinary obstruction, Urolithiasis, Urinary tract infection X-Ray, Labs, Meds, VS Vital Signs Date Time Temp Pulse Resp B/P (MAP) Pulse Ox O2 Delivery O2 Flow Rate FiO2 04/24/25 11:54 97.3 98 20 134/87 97 97.3 Lab Test 04/24/25 12:55 04/24/25 12:47 Range/Units White Blood Count 8.0 4.4-10.8 10^3/uL Red Blood Count 5.10 4.5-5.90 10^6/uL Hemoglobin 15.7 13.5-17.5 g/dL Hematocrit 45.9 41.0-53.0 % Mean Corpuscular Volume 90.1 80.0-100.0 fL Mean Corpuscular Hemoglobin 30.8 28.0-32.0 pg Mean Corpuscular Hemoglobin Concent 34.2 32.0-36.0 g/dL Red Cell Distribution Width 12.7 11.8-14.3 % Platelet Count 305 140-450 10^3/uL Mean Platelet Volume 6.9 6.9-10.8 fL Neutrophils (%) (Auto) 67.8 37.0-80.0 % Lymphocytes (%) (Auto) 22.3 10.0-50.0 % Monocytes (%) (Auto) 6.9 0.0-12.0 % Eosinophils (%) (Auto) 2.3 0.0-7.0 % Basophils (%) (Auto) 0.7 0.0-2.0 % Neutrophils # (Auto) 5.4 1.6-8.6 10 ^3/uL Lymphocytes # (Auto) 1.8 0.4-5.4 10 ^3/uL Monocytes # (Auto) 0.6 0-1.3 10 ^3/uL Eosinophils # (Auto) 0.2 0-0.8 10 ^3/uL Basophils # (Auto) 0.1 0-0.2 10 ^3/uL Nucleated Red Blood Cells 0.2 % Sodium Level 139 136-145 mmol/L Potassium Level 4.0 3.5-5.1 mmol/L Chloride Level 101 98-107 mmol/L Carbon Dioxide Level 28 20-31 mmol/L Anion Gap 10 5-15 Blood Urea Nitrogen 17 9-23 mg/dL Creatinine 1.01 0.700-1.30 mg/dL Glomerular Filtration Rate Calc 90 >90 mL/min BUN/Creatinine Ratio 16.8 10.0-20.0 Serum Glucose 103 74-106 mg/dL Calcium Level 9.8 8.7-10.4 mg/dL Urine Color Light-orange Yellow Urine Clarity Ex.turbid Clear Urine pH 5.5 5.0-9.0 Urine Specific [place] 1.022 1.001-1.035 Urine Protein Trace H Negative Urine Ketones Negative Negative Urine Blood 3+ H Negative /uL Urine Nitrite Negative Negative Urine Bilirubin Negative Negative Urine Urobilinogen Normal Negative mg/dL Urine Leukocyte Esterase Negative Negative /uL Urine RBC 47 0 - 3 /hpf Urine Microscopic WBC 6 H 0-3 /HPF Urine Squamous Epithelial Cells None seen <5 /hpf Urine Bacteria None seen None Seen /hpf Urine Mucus Few None Seen Urine Glucose Normal Normal mg/dL Time of 1ST Reevaluation: 12:45 Reevaluation 1ST: Unchanged Patient Education/Counseling: Diagnosis, Treatment Family Education/Counseling: No Family Present SEPSIS Sepsis Screen Date sepsis recognized/suspect: Apr 24, 2025 Time Sepsis recognized/suspect: 1154 Recent Procedure: No On Antibiotic Therapy: No Respiratory Rate >20: No Heart Rate >90: No Temp<36 C (96.8 F) or >38.3 C: No SBP <90 or MAP <65 mmHG: No New Acute Mental Status Change: No Is the patient on CPAP, BIPAP,: No Physician Orders Ct Ab Pel Wo Con-No Oral Or Iv (04/24/25 12:07) Vital Signs Date Time Temp Pulse Resp B/P (MAP) Pulse Ox O2 Delivery O2 Flow Rate FiO2 04/24/25 11:54 97.3 98 20 134/87 97 97.3 Laboratory Tests Test 04/24/25 12:55 White Blood Count 8.0 10^3/uL (4.4-10.8) Departure 1 Departure Time of Disposition: 14:24 (49 yo M w/ PMH of recurrent kidney stones presenting for evaluation of recurrent right-sided mid abdominal pain and urethral discomfort feeling as if he has a kidney stone that is stuck. Patient was just admitted here approximately 1 month ago for right-sided nephrolithiasis. This recurrent discomfort could be consistent with recurrent right-sided nephrolithiasis. CT of the abdomen and pelvis was performed which only shows tiny bilateral nonobstructing renal calculi, no evidence of hydronephrosis or obstructing stones visualized. Does have a 5 mm calculus within the posterior bladder. Pt has since passed his kidney stones that were causing prior issues along his right side. Urinalysis shows red blood cells, related to recent passing of stones, however, no signs to suggest UTI. CBC with no evidence of critical leukocytosis or significant anemia. Metabolic panel shows no evidence of acute electrolyte abnormalities or acute kidney insufficiency. Patient was offered IM Toradol, oral Tylenol for analgesia. Patient reports resolution of discomfort. Stable for discharge for further outpatient symptomatic management.) Impression: Primary Impression: Right sided abdominal pain Additional Impressions: Hematuria Dysuria Disposition: HOME / SELF CARE / HOMELESS Condition: Stable Additional Instructions: You were evaluated today for recurrent right-sided abdominal pain. A CT of the abdomen and pelvis was performed which shows a you have since passed your kidney stones on the right side that were causing prior issues. You still have a small stone within your bladder. Your urinalysis shows no signs of urinary tract infection. Drink plenty of fluids to stay hydrated. Take Tylenol, ibuprofen as needed for discomfort. Discharged With: Self Critical Care Note Critical Care Time?: No Stability Stability form required: No Heart Score Heart Score: Heart Score Response (Comments) Value History N/A 0 EKG N/A 0 Age N/A 0 Risk Factors N/A 0 Troponin N/A 0 Total 0 I personally scribed for TIFFANY REGAN MD ([email or web address]) on 04/24/25 at 12:19. Electronically submitted by Carrol Sumner ([email or web address]). TIFFANY REGAN MD Apr 24, 2025 12:19
--- NOTE | 2025-04-24 13:07 | DVH ---
CLINICAL INFORMATION: Right flank pain, hematuria. TECHNIQUE: Axial CT images of the abdomen and pelvis were obtained without IV contrast. Coronal and sagittal reformatted images were obtained, reviewed, and stored. Evaluation of the parenchymal organs is limited without IV contrast. Evaluation of the bowel and mesentery is limited without oral contrast. All CT scans at this medical facility are performed using dose modulation techniques as appropriate to a performed exam including the following: Automated exposure control was utilized; adjustment of the MA and/or KV according to patient size; and use of iterative reconstruction technique. CTDIvol = 12.14 mGy DLP = 756.73 mGy-cm COMPARISON: CT CT AB PEL WO CON-NO ORAL OR IV on DOS: 04/05/25, CT CT AB PEL WO CON-NO ORAL OR IV on DOS: 03/27/25 FINDINGS: Lung bases: Lung bases are clear. Liver: Grossly unremarkable in its noncontrast enhanced appearance. No abnormal density or focal lesion identified. Biliary: No calcified gallstones or biliary ductal dilatation. Spleen: Unremarkable. Pancreas: Grossly unremarkable in its noncontrast enhanced appearance. Adrenal glands: Unremarkable. No mass. Kidneys and bladder: No hydronephrosis. Tiny, approximately 1 mm nonobstructing calculi in both kidneys. No obstructing calculi visualized. 5 mm calculus in the left posterior bladder. Mild circumferential thickening of the bladder wall. Aorta/Vascular: Moderate atherosclerotic calcification. No abdominal aortic aneurysm. Lymph nodes: No mass or lymphadenopathy. Bowel/mesentery: No small bowel obstruction. No free air or free fluid. Appendix is visualized and appears unremarkable. Mild wall thickening and questionable minimal inflammatory stranding at the ascending colon, possible mild colitis in the appropriate clinical setting. Pelvic organs: Grossly unremarkable. Abdominal wall: No mass or hernia. Bones: No acute fracture or suspicious intraosseous lesion. IMPRESSION: 1. Tiny bilateral nonobstructing renal calculi. No hydronephrosis or obstructing calculus visualized. 2. 5 mm calculus in the left posterior bladder. 3. Mild circumferential thickening of the bladder wall. Correlate clinically to exclude cystitis. 4. Wall thickening and questionable minimal inflammatory stranding involving the ascending colon. Possible mild colitis in the appropriate clinical setting. 5. Additional findings as detailed above.
[2025-04-24 13:11] LABS: Urine Protein, UAD TRACE (Negative)
[2025-04-24 13:12] LABS: Hematocrit 45.9 % (41.0-53.0); Hemoglobin 15.7 g/dL (13.5-17.5); Mean Corpuscular Hemoglobin 30.8 pg (28.0-32.0); Mean Corpuscular Volume 90.1 fL (80.0-100.0); Nucleated Red Blood Cells % 0.2 %
[2025-04-24 13:22] LABS: Chloride 101 mmol/L (98-107); Potassium 4.0 mmol/L (3.5-5.1); Sodium 139 mmol/L (136-145)
[2025-04-24 13:23] LABS: Anion Gap 10 (5-15); Carbon Dioxide 28 mmol/L (20-31)
[2025-04-24 13:24] LABS: Calcium 9.8 mg/dL (8.7-10.4)
[2025-04-24 13:29] LABS: BUN/Creatinine Ratio 16.8 (10.0-20.0); Blood Urea Nitrogen 17 mg/dL (9-23); Glucose 103 mg/dL (74-106)
== END 2025-04-24 16:31 | disposition home or self-care (01) ==
LOC: ER 11:52
DX: R10.9 Unspecified abdominal pain (principal); R31.9 Hematuria, unspecified; R19.7 Diarrhea, unspecified; F41.9 Anxiety disorder, unspecified; Z79.899 Other long term (current) drug therapy; Z87.442 Personal history of urinary calculi; Z88.0 Allergy status to penicillin
CPT/HCPCS: 36415; 74176; 80048; 81001; 85025